=== PATIENT | male | born 1955 | race Caucasian/White ===

== ENCOUNTER 2020-06-10 11:30 | Day surgery (SDC) | payer BC, SELFPAY ==
--- NOTE | 2020-06-07 20:20 | PCM.HP.BLA ---
History and Physical Date of Admission: 06/10/20 HISTORY AND PHYSICAL ? Naun Herrera 1955 ? ? REFERRING PHYSICIAN: Miriam Black (Eladio), LA[employer]DR[employer]ORER.* ? CHIEF COMPLAINT: No chief complaint on file. ? HPI: The patient is a 64 year old male presents with complaint of RUQ abdominal pain and also presents with right inguinal hernia. He states that he noted RUQ abdominal pain about a week ago. He began noted right groin bulge that is tender to palpation, but denies pain in the area. Though not comfortable He states that he noted the hernia about 2 months ago. Growing larger, feels something loose in there. Feels like he needs to support the area He had left inguinal hernia repair many years ago. He states that he is taking 600 mg ibuprofen per day for chronic back pain. Notes constipation and hard stools, sometimes hard pellets, does admit to prolonged sitting, has a bowel movement every day No colon cancer known in family. He does have bright red blood per rectum, attributed to hemorrhoids. ?? PAST MEDICAL HISTORY ? Cerebral brain hemorrhage (HCC) ? ? Chronic low back pain ? ? Heart disease ? ? History of hepatitis A ? ? History of seizures as a child ? ? Juvenile epilepsy (HCC) ? ? PAST SURGICAL HISTORY ? HERNIA REPAIR HX ? 1974 ? age 15 ? ? Current Outpatient Medications ? iv contrast (will be provided with radiology test) CT LIVER W IVCON Inject, intravenously, once for 1 dose. No IV access, insert saline lock prior to the beginning of sedation, infusion, injection of imaging exam. Discontinue saline lock post exam. If Pt. has a central line or IVAD, may access for administration according to line specific nursing protocol. Once exam is complete flush line and de-access according to line specific nursing protocol in the CT contrast administration guidelines link. ? xnrdc-um-9-jkp-qal-xnmakaa-ast (KRILL OIL) 1,300-809-05-80 mg cap Take as directed ? ibuprofen (MOTRIN) 800 mg tablet Take 1 tablet by mouth every 8 hours as needed for Pain (with food.). ? GLUCOSAMINE HCL/CHONDR DEVNIE A NA (OSTEO BI-FLEX ORAL) Take by mouth. ? ? ALLERGIES: Tetracycline ? PERSONAL HISTORY: Social History ? Tobacco Use ? Smoking status: Never Smoker ? Smokeless tobacco: Never Used Substance Use Topics ? Alcohol use: Yes ? ? Alcohol/week: 4.0 standard drinks ? ? Types: 4 Shots of liquor per week ? ? Comment: history of alcoholism, quit drinking heavily 10 years ago ? Drug use: No ? FAMILY HISTORY ? Cancer Mother ? ? Lung ? Breast Cancer Mother ? ? Cancer Father ? ? Lung ? Alcohol abuse Father ? ? Heart Attack Father ? ? Breast Cancer Sister ? ? Emphysema Maternal Grandmother ? ? Heart Attack Maternal Grandfather ? ? from [place] at age 55 ? Alcohol abuse Paternal Grandmother ? ? Heart Attack Paternal Grandfather ? ? first [place] at age 45 ? Liver Cancer Paternal Grandfather ? ? No Known Problems Sister ? ? ? REVIEW OF SYSTEMS: General - denies fevers, denies anorexia, denies weight loss Cardiovascular - denies chest pain Pulmonary - denies shortness of breath, denies coughing up blood Gastrointestinal - see HPI, denies hematemesis Neurological - denies seizures, denies chronic numbness/weakness of extremities Genitourinary - denies burning with urination, denies blood in urine Hematological - denies spontaneous/prolonged bleeding Skin - denies nonhealing skin wounds Musculoskeletal - has back pain Endocrine - denies diabetes Psychological ? no major mood changes ? PHYSICAL EXAMINATION: General: The patient is 64 year old male, well nourished, well hydrated in no acute distress. The patient is oriented to time, place, and person. VITALS: Pulse 65, temperature 36.4 ?C (97.5 ?F), weight 98 kg (216 lb), SpO2 95 %. Body mass index is 31.9 kg/m?. Head ? Normocephalic. EOM intact with sclera clear and no icterus noted. Wearing glasses. Mouth with mucus membranes moist. Neck - supple with no jugular venous distention noted. Trachea is midline. Lungs ? clear to auscultation. Normal breath sounds. No rales/rhonchi/wheezing noted. No labored breathing noted, such as retractions. No cough heard. Heart ? normal S1 and S2 auscultated. No rubs/clicks/murmurs noted. Regular rate. Abdomen ? soft and benign. Normal bowel sounds. No abdominal bruits noted. Genitalia ? normal male phallus, testes in normal anatomical position and no masses noted, right inguinal hernia noted - reducible, no left inguinal hernias noted even with valsalva-like maneuvers Extremities ? no calf tenderness noted. No pitting edema noted. Skin ? normal skin integrity. Neurological ? gait normal, no focal deficits noted. Psych ? calm and appropriate ? ? IMPRESSION: right inguinal hernia ? PLAN: I have discussed the above with the patient. I have offered right inguinal hernia repair with mesh. I have explained the procedure to the patient. I have counseled the patient as to the risks of the procedure, including but not limited to: infection, bleeding, injury to any blood vessels/nerves, scar tissue, injury to any the spermatic cord and/or testicle, injury to bowel/bladder, chronic groin pain, recurrence of hernia, wound infections, complications of anesthesia, etc. ? the patient understands. ? The patient was offered a surgery/procedure . The provider and patient have discussed in detail the risk of exposure to and/or potential harm posed by the COVID-19 virus with having a surgery/procedure at this time versus the risk of? delaying the surgery/procedure. It is not possible to know either the risk of delaying the surgery or procedure or chance of getting an infection with perfect accuracy, but a joint decision was made between the patient and the provider ?to proceed at this time with the scheduled surgery/procedure. Procedure to be scheduled at [facility]. The patient wishes to proceed. ? I have answered all questions to the patient?s satisfaction and the patient has no further questions. ? . Diagnoses: (R19.09) Bulge in groin area (R16.0) Hypodense mass of liver (K62.5) Rectal bleeding Return to Clinic: The patient is instructed to follow-up with me after the procedure. ? ? ? Lidia Melendez MD
--- NOTE | 2020-06-09 09:27 | EKG12_ITS ---
Test Reason : PRE OP Blood Pressure : / mmHG Vent. Rate : 056 BPM Atrial Rate : 056 BPM P-R Int : 240 ms QRS Dur : 092 ms QT Int : 430 ms P-R-T Axes : 017 071 054 degrees QTc Int : 414 ms Sinus bradycardia with 1st degree A-V block Otherwise normal ECG Confirmed by VERITO HUNTLEY, KEMI ([id number]), assistant production editor CARISSA LARSON ([id number]) on 06/09/2020 1:29:26 PM Referred By: Lidia Melendez Confirmed By:KEMI SELLERS MD
[2020-06-09 10:13] LABS: Hematocrit 44.9 % (40-54); Hemoglobin 14.6 g/dL (13.0-16.5); Mean Corp Hgb Conc 32.5 g/dL (32-36); Mean Corpuscular Hgb 28.1 pg (27.0-32.0); Mean Corpuscular Volume 86.3 fL (80-94); Mean Platelet Vol. 9.4 fl (6.2-12.0); Platelet Count 255 K/mm3 (150-450); RBC Distribution Width CV 13.5 % (11.6-14.6); RBC Distribution Width SD 42.4 fl (35.1-43.9)
[2020-06-09 10:51] LABS: AST(SGOT) 23 U/L (15-37); Alanine Aminotransfer ALT/SGPT 41 U/L (16-61); Albumin, Serum 3.9 g/dL (3.2-5.0); Alkaline Phosphatase 50 U/L (45-117); Anion Gap 4 (5-15); BUN 18 mg/dL (7-18); BUN/Creat Ratio 14.5 RATIO (10-20); Bilirubin, Direct 0.05 mg/dL (0.00-0.30); Calcium,Total 9.2 mg/dL (8.5-10.1); Chloride 106 mmol/L (98-107); Creatinine, Serum 1.24 mg/dL (0.70-1.30); EST Glomerular Filtration Rate 62 mL/min (>60); Est Glom Filt Rate - Afr Amer 75 mL/min (>60); Globulin 3.8 g/dL (2.2-4.2); Glucose 99 mg/dL (74-106); Potassium 4.5 mmol/L (3.5-5.1); Protein, Total 7.7 g/dL (6.4-8.2); Sodium Level 139 mmol/L (136-145)
[2020-06-10] MEDS: Lactated Ringers 1,000 ML 75 ML IV (12:00)
[2020-06-10 12:11] VITALS: BP 132/82; PULSE 61; RESP 18; TEMP 36.6; O2SAT 99; BMI 32.3
--- NOTE | 2020-06-10 12:54 | PCM.DC.HER ---
Discharge Diet: No Restrictions - drink plenty of fluids Discharge Activity: Return to Normal Activity, May not drive while taking narcotic pain medications. Lifting Restrictions: no lifting greater than 40-50 pounds for one month Call your doctor if your incision/area has: Continuous Slow Oozing, Foul Smelling Discharge Additional Instructions: Recommended pain control regimen - May take 600 mg ibuprofen (Motrin) and then in 3-4 hours, may take 650 mg acetaminophen (Tylenol), then in 3-4 hours may take 600 mg ibuprofen, then in 3-4 hours may take 650 mg acetaminophen and so on for 2-3 days May take narcotic pain medication for pain that is not controlled by above and at night for comfort through the night Leave dressings in place May get dressings wet in shower - do not scrub in the area and pat dry Do not soak - no tub baths/swimming For hernia surgery - Swelling and bruising will occur in the area of the incision and also the scrotum Ice packs applied to the area will help, apply as long as tolerated and for your comfort Also can elevate scrotum by lying in a Lazy-boy chair position with legs up and place a folded towel across your upper thighs, place scrotum on top of towel and this will help drain the extra fluid from the scrotum back into your torso You may have bleeding at the dressing sites. If small amounts and not seeping through the dressing, do not worry - leave dressing in place. If starting to seep through the dressing, you may remove the dressing and take a clean wash clothe and apply direct pressure to the area for at least an hour and then apply a new clean bandaid at the site. If it still has not stopped bleeding, please call the office during the day or the [facility] handle machine operator at after hours and ask for Dr. Melendez Please call for a follow up appointment at the office to be seen in 1-2 weeks for a date and time available at your convenience. Call . Allergies/Adverse Reactions: Allergies Tetracyclines Adverse Reaction (Verified 06/10/20 12:11) Vomiting Medications to take at Discharge Glucos Sul 2Kcl/MSM/Chond/C/Mn [Glucosamine Chondroitin Cap] 1 ea PO DAILY 06/08/20 Ibuprofen [Ibu] 800 mg PO PRN PRN 06/08/20 Krill/Om-3/Dha/Epa/Phospho/Ast [Krill Oil 1,000 mg Softgel] 1 ea PO DAILY 06/08/20 Naproxen Sodium [Aleve] 220 mg PO DAILY PRN 06/08/20 Oxycodone [Oxyir] 5 mg PO Q8H PRN PRN 5 Days #15 tablet 06/10/20 The following prescriptions were given: Oxycodone [Oxyir] 5 mg PO Q8H PRN PRN 5 Days #15 tablet PRN Reason: Pain Score 6-10 Transmission Status: Received by [facility] Orders to be completed after discharge: COVID 19 AG RAPID (RN COLLECT) Time Frame: 06/09/20, Facility: [facility], Location: Laboratory Primary Care Physician: Todd Rivas MD [Primary Care Provider] - Test Results: Test results from this visit will be discussed in further detail at your follow-up appointment, if applicable. Please Follow Up With: Lidia Melendez MD - see above
[2020-06-10] MEDS: Cefazolin 2 GM in 0.9% Normal Saline 100 ML IV (13:08)
[2020-06-10] MEDS: Bupivacaine 0.25% 30 ML Vial (13:12)
[2020-06-10] MEDS: Lidocaine 1%/Epi 1:200 (30ml) 30 ML AMPUL (13:12)
--- NOTE | 2020-06-10 14:13 | OP.PCM_ITS ---
Report of Operation Date of Procedure: 06/10/20 Pre-Operative Diagnosis: right inguinal hernia Post-Operative Diagnosis: right inguinal hernia - direct and indirect Surgery/Procedure Performed:: right inguinal hernia repair with mesh Description of Surgical Findings:: indirect and direct inguinal hernia noted Type of Anesthesia:: General Anesthesiologist: Nik Kwon Specimen's removed: none Estimated Blood Loss (mL): < 10 ml Fluids Replaced: 700 ml RL Description of Procedure: After informed consent was obtained, patient was brought to the Operating Room. Appropriate time out protocol was followed. The patient was placed in the supine position. The patient was then placed under anesthesia by the anesthesia provider. The lower torso and the right groin area and genitalia were then prepped with a surgical skin preparation and appropriate sterile surgical drapes were placed. The anatomical landmarks were identified and after anesthetizing the skin and subcutaneous tissues with 0.25% Marcaine with epinephrine, a transverse skin incision was made above the level of the internal inguinal ring. The subcutaneous tissues were then sharply dissected down to the external oblique fascia and any hemorrhage was adequately controlled with electrocoagulation. The external oblique was then divided obliquely along the fibers and a muscle-splitting incision was then made to divide the internal oblique musculature and fascia. The transversalis fascia was then identified and was then incised parallel to the inferior hypogastric vessels. The preperitoneal space was then entered. Blunt dissection was then done to identify out Samuel's ligament, the pubic tubercle and a large area surrounding these landmarks for placement of the mesh. The iliac vessels were identified. Within Hasselbach's triangle, there was a fascial defect noted. The hernia was reduced back into the preperitoneal cavity. The spermatic cord was identified and isolated to prevent its injury. There was an internal hernia sac identified. This peritoneal sac was then from the spermatic cord by blunt di ssection. Blunt dissection continued to separate the spermatic cord from the sac and this was done proximally until the bifurcation of the gonadal vessels and vans deferens was noted. The peritoneal sac was opened and there was no incarceration of any intraabdominal contents. There is no evidence of any other opening in the peritoneum. The peritoneal opening that was created was then closed using a running 3-0 Vicryl suture. A large right sided Bard 3D mesh was then positioned into the preperitoneal space. A 5 mm tacker was used to secure the medial aspect of the mesh was tacked to the pubic tubercle. It was placed such that the medial aspect would be overlapping medial to the pubic tubercle and the inferior edge would be placed inferior to Samuel's ligament. The remainder of the mesh was flattened out against the anterior abdominal wall. The mesh also covered the wound opening in the preperitoneal space. The internal oblique and transversalis fascia was then reapproximated using interrupted 0 prolene suture. One of the sutures was used to lock the mesh into position and secure it to the anterior abdominal wall. Hemostasis was carefully controlled with electrocoagulation. The external oblique fascia was then reapproximated using a running 0 Vicryl suture. This was carefully done to avoid any entrapment of blood vessels/nerves. Tracy's fascia was closed using Vicryl suture in an interrupted simple fashion. The skin incision was closed with 4-0 Monocryl in a running subcuticular fashion. Cavilon and Steri-Strips were used to reinforce the skin closure and appropriate sterile dressing was applied. Sponge, needle, and instrument count were verified and correct at the time of skin closure. The patient was brought to the Recovery Room in stable condition. Grafts/Implants Used: Bard 3D mesh LOT [id number], Covidien 5 mm tacker Lot [id number] - Complications none noted - Admit VTE Documentation VTE Present on Admission: Yes VTE Mechan Device Prophylaxis: SCD's
[2020-06-10 14:32] VITALS: BP 119/80; BP 132/82; PULSE 60; RESP 18; TEMP 36.4; O2SAT 96
[2020-06-10 14:38] VITALS: BP 123/79; BP 132/82; PULSE 56; RESP 18; O2SAT 98
[2020-06-10 14:45] VITALS: BP 117/83; BP 132/82; PULSE 58; RESP 18; O2SAT 97
[2020-06-10 14:54] VITALS: BP 114/80; BP 132/82; PULSE 60; RESP 18; TEMP 36.3; O2SAT 96
[2020-06-10] MEDS: oxyCODONE 5 MG Tablet PO (15:18)
[2020-06-10 16:25] VITALS: BP 120/62; BP 132/82; PULSE 58; RESP 18; TEMP 36.8; O2SAT 95
== END 2020-06-10 16:39 | disposition home or self-care (01) ==
LOC: SDC 11:31 → AC 11:31
PROVIDERS: Anesthesiology; PCP Internal Medicine; Referring Provider Surgery; Visit Provider Surgery
PROC: (CPT 49505; principal; 2020-06-10 12:45)
DX: K40.90 Unilateral inguinal hernia, without obstruction or gangrene, not specified as recurrent (principal); Z20.828 Contact with and (suspected) exposure to other viral communicable diseases; Z87.19 Personal history of other diseases of the digestive system
CPT/HCPCS: 00840; 49505; 36415; 80048; 80076; 85027; 93005; J7120; C1781; J2405

== ENCOUNTER 2020-07-27 09:52 | Day surgery (SDC) | payer BC, SELFPAY ==
--- NOTE | 2020-07-25 14:03 | HP.PCM_ITS ---
History and Physical Date of Admission: 07/27/20 HISTORY AND PHYSICAL ? Naun Herrera 1955 ? ? REFERRING PHYSICIAN: Lidia Melendez MD ? CHIEF COMPLAINT: Established Patient (F/u hernia repair) ? HPI: The patient is a 65 year old male is s/p right inguinal hernia repair with mesh done on 06/10/20 at [facility]. He was noted to have a small indirect inguinal hernia but large direct inguinal hernia. He notes a persistent mass in the right groin area. At first, I thought that this may be a residual seroma, however, it has not resolved and is becoming painful for the patient. He also notes pulling sensation discomfort on the right side of his abdomen. ? ? PAST MEDICAL HISTORY Diagnosis Date ? Cerebral brain hemorrhage (HCC) ? ? Chronic low back pain ? ? Coronary artery disease ? ? Heart disease ? ? History of hepatitis A ? ? History of seizures as a child ? ? Inguinal hernia 05/2020 ? Juvenile epilepsy (HCC) ? ? PAST SURGICAL HISTORY Procedure Laterality Date ? BRAIN SURGERY HX ? ? ? COLONOSCOPY SCRN NOT HIGH RISK ? 05/14/2020 ? HERNIA REPAIR HX ? 1975 ? age 15 ? REPAIR INGUINAL HERNIA Right 06/11/2020 ? with mesh ? ? Current Outpatient Medications Medication Sig ? snwpt-oh-9-mhd-kbd-quhumgd-ast (KRILL OIL) 1,468-097-95-80 mg cap Take as directed ? ibuprofen (MOTRIN) 800 mg tablet Take 1 tablet by mouth every 8 hours as needed for Pain (with food.). ? GLUCOSAMINE HCL/CHONDR DEVINE A NA (OSTEO BI-FLEX ORAL) Take by mouth. ? ? ALLERGIES: Tetracycline ? PERSONAL HISTORY: Social History ? Tobacco Use ? Smoking status: Never Smoker ? Smokeless tobacco: Never Used Substance Use Topics ? Alcohol use: Yes ? ? Alcohol/week: 4.0 standard drinks ? ? Types: 4 Shots of liquor per week ? ? Comment: history of alcoholism, quit drinking heavily 10 years ago ? Drug use: No ? FAMILY HISTORY Problem Relation Age of Onset ? Cancer Mother ? ? Lung ? Breast Cancer Mother ? ? Cancer Father ? ? Lung ? Alcohol abuse Father ? ? Heart Attack Father ? ? Breast Cancer Sister ? ? Emphysema Maternal Grandmother ? ? Heart Attack Maternal Grandfather ? ? from [place] at age 55 ? Alcohol abuse Paternal Grandmother ? ? Heart Attack Paternal Grandfather ? ? first [place] at age 45 ? Liver Cancer Paternal Grandfather ? ? No Known Problems Sister ? ? ? REVIEW OF SYSTEMS: General - denies fevers, denies anorexia, denies weight loss Cardiovascular - denies chest pain Pulmonary - denies shortness of breath, denies coughing up blood Gastrointestinal -?see HPI,?denies hematemesis Neurological - denies seizures, denies chronic numbness/weakness of extremities Genitourinary - denies burning with urination, denies blood in urine Hematological - denies spontaneous/prolonged bleeding Skin - denies nonhealing skin wounds Musculoskeletal -?has back pain Endocrine - denies diabetes Psychological ??no major mood changes ? ? PHYSICAL EXAMINATION: General: ?The patient is 64 year old male, well nourished, well hydrated in no acute distress. ?The patient is oriented to time, place, and person. VITALS:?Pulse 65, temperature 98.5 ?F, weight 216 lb Head ??Normocephalic. EOM intact with sclera clear and no icterus noted. ?W earing glasses.??Mouth with mucus membranes moist. Neck - supple with no jugular venous distention noted. Trachea is midline. Lungs ??clear to auscultation. Normal breath sounds. No rales/rhonchi/wheezing noted. No labored breathing noted, such as retractions. No cough heard. Heart ??normal S1 and S2 auscultated. No rubs/clicks/murmurs noted. Regular rate. Abdomen ??soft and benign. Normal bowel sounds. No abdominal bruits noted. Genitalia ??normal male phallus, testes in normal anatomical position and no masses noted, right inguinal bulge noted - tender Extremities ??no calf tenderness noted. No pitting edema noted. Skin ??normal skin integrity. Neurological ??gait normal, no focal deficits noted. Psych ??calm and appropriate ? ? IMPRESSION: possible recurrent right inguinal hernia ? PLAN: I have discussed the above with the patient. I have offered right inguinal exploration - right inguinal hernia repair with mesh I have explained the procedure to the patient. I have counseled the patient as to the risks of the procedure, including but not limited to: infection, bleeding, injury to any blood vessels/nerves, scar tissue, injury to any intrabdominal organs, injury to bowel/bladder, injury to the spermatic cord and/or testicle, chronic groin pain, recurrence of hernia, wound infections, complications of anesthesia, etc. ? the patient understands. The patient was offered a surgery/procedure. The provider and patient have discussed in detail the risk of exposure to and/or potential harm posed by the COVID-19 virus with having a surgery/procedure at this time versus the risk of delaying the surgery/procedure. It is not possible to know either the risk of delaying the surgery or procedure or chance of getting an infection with perfect accuracy, but a joint decision was made between the patient and the provider to proceed at this time with the scheduled surgery/procedure. The patient wishes to proceed. ? I have answered all questions to the patient?s satisfaction and the patient has no further questions. . Diagnoses: (K40.91) Recurrent right inguinal hernia (primary encounter diagnosis) ? Lidia Melendez MD
[2020-07-27] VITALS (9 sets, daily range): BP systolic 106–134; BP diastolic 67–85; PULSE 56–65; RESP 16; TEMP 36.1–36.6; O2SAT 93–99; BMI 32.0
[2020-07-27] MEDS: Lactated Ringers 1,000 ML 100 ML IV ×2 (10:34→13:00)
--- NOTE | 2020-07-27 11:23 | DCINST_ITS ---
Discharge Diet: No Restrictions - drink plenty of fluids Discharge Activity: Return to Normal Activity, May not drive while taking narcot ic pain medications. Lifting Restrictions: no lifting greater than 20 pounds Call your doctor if your incision/area has: Continuous Slow Oozing, Foul Smelling Discharge Call your doctor if you observe: Fever of 101 or Higher Additional Instructions: Recommended pain control regimen - May take 600 mg ibuprofen (Motrin) and then in 3-4 hours, may take 650 mg acetaminophen (Tylenol), then in 3-4 hours may take 600 mg ibuprofen, then in 3- 4 hours may take 650 mg acetaminophen and so on for 2-3 days May take narcotic pain medication for pain that is not controlled by above and at night for comfort through the night Leave dressings in place May get dressings wet in shower - do not scrub in the area and pat dry Do not soak - no tub baths/swimming For hernia surgery - Swelling and bruising will occur in the area of the incision and also the scrotum Ice packs applied to the area will help, apply as long as tolerated and for your comfort Also can elevate scrotum by lying in a Lazy-boy chair position with legs up and place a folded towel across your upper thighs, place scrotum on top of towel and this will help drain the extra fluid from the scrotum back into your torso Please call for a follow up appointment at the office to be seen in 1-2 weeks for a date and time available at your convenience. Call . Allergies/Adverse Reactions: Allergies Tetracyclines Adverse Reaction (Verified 07/21/20 10:00) Vomiting Medications to take at Discharge Glucos Sul 2Kcl/MSM/Chond/C/Mn [Glucosamine Chondroitin Cap] 2 ea PO DAILY 06/08/20 Ibuprofen [Ibu] 800 mg PO PRN PRN 06/08/20 Krill/Om-3/Dha/Epa/Phospho/Ast [Krill Oil 1,000 mg Softgel] 3 ea PO DAILY 06/08/20 Primary Care Physician: Todd Rivas MD [Primary Care Provider] - Test Results: Test results from this visit will be discussed in further detail at your follow- up appointment, if applicable. Please Follow Up With: Lidia Melendez MD - call When: to be seen in 1-2 weeks, please call for date and time, thank you
[2020-07-27] MEDS: Cefazolin 2 GM in 0.9% Normal Saline 100 ML IV (11:26)
[2020-07-27] MEDS: Bupivacaine 0.25% 30 ML Vial (12:49)
--- NOTE | 2020-07-27 12:50 | PCM.OPRPT ---
Report of Operation Date of Procedure: 07/27/20 Pre-Operative Diagnosis: recurrent right inguinal hernia Post-Operative Diagnosis: same Surgery/Procedure Performed:: repair of recurrent right inguinal hernia Description of Surgical Findings:: fatty tissues in the groin area business account specialist: Zoraida Hall Type of Anesthesia:: General Anesthesiologist: Sanjay Zaragoza Specimen's removed: none Drains: none Estimated Blood Loss (mL): 20 ml Fluids Replaced: 1000 ml RL Description of Procedure: After informed consent was obtained, the patient was brought to the Operating Room and placed in the supine position. Appropriate time out protocol was followed. The patient was then placed under anesthesia. The right groin area and lower torso and genitalia were then prepped with a sterile surgical skin preparation. Sterile surgical drapes were placed. This skin and subcutaneous tissues were then widely infiltrated with the local anesthetic. A skin incision was then made with a 15 blade scalpel over the hernia site in a transverse oblique fashion and carried down to the subcutaneous tissues using sharp dissection. Any hemorrhage was adequately controlled with electrocautery. Division of the tissues along the incision line continued down to the external oblique fascia was identified. It was then divided along its fibers using sharp dissection carefully avoiding any injury to any blood vessels/nerves. The spermatic cord was then isolated using blunt dissection and tagged with a Talia drain. There was fatty tissues in the groin area. No actual hernia defect was identified, but the floor of the inguinal canal was weak. The spermatic cord was carefully examined, there was no indirect inguinal hernia sac identified. The floor of the inguinal canal was opened and there was no femoral hernia noted. A Perfix plug/patch was brought up, large sized. The plug was placed in the preperitoneal space to reinforce the floor of the inguinal canal. It's edges were sutured to the following - pubic tubercle, Samuel's ligament and the confluence of the internal oblique and transversalis fascia with prolene suture. The patch portion of the mesh was then sutured to the floor of the inguinal canal. It was sutured to the abovementioned locations. The lateral legs of the mesh were then wrapped around the spermatic cord and sutured to itself. The spermatic cord was then replaced in its proper anatomical position. The external oblique fascia was then reapproximated over the spermatic cord to close the roof of the inguinal canal with a running 3-0 vicryl suture. Tracy's fascia was reapproximated with interrupted 3-0 vicryl sutures. The skin incision was reapproximated with a running 4-0 Monocryl suture. Cavilon and steristrips were placed to reinforce the skin closure and a sterile opsite dressing was applied. Sponge, needle, and instrument count were verified and correct at the time of skin closure. The patient was brought to the Recovery Room in stable condition. - Complications none noted - Admit VTE Documentation VTE Present on Admission: Yes VTE Mechan Device Prophylaxis: SCD's
== END 2020-07-27 16:32 | disposition home or self-care (01) ==
LOC: SDC 09:54 → AC 09:54
PROVIDERS: PCP Internal Medicine; Referring Provider Surgery; Visit Provider Surgery
PROC: (CPT 49520; principal; 2020-07-27 11:15)
DX: K40.91 Unilateral inguinal hernia, without obstruction or gangrene, recurrent (principal); Z20.828 Contact with and (suspected) exposure to other viral communicable diseases; M54.5 Low back pain; G89.29 Other chronic pain; Z87.19 Personal history of other diseases of the digestive system
CPT/HCPCS: 00830; 49520; 87426; C9803; J7120; C1781; J2405

== ENCOUNTER 2022-06-19 07:25 | Inpatient (IN) | payer MEDICARE, OTHER, SELFPAY ==
[2022-06-19] VITALS (13 sets, daily range): BP systolic 104–148; BP diastolic 69–88; PULSE 56–70; RESP 16–20; TEMP 36.6–36.9; O2SAT 96–100; BMI 31.0; BMI 30.9
--- NOTE | 2022-06-19 07:34 | EKG12_ITS ---
Test Reason : CP Blood Pressure : / mmHG Vent. Rate : 061 BPM Atrial Rate : 061 BPM P-R Int : 366 ms QRS Dur : 098 ms QT Int : 420 ms P-R-T Axes : 027 026 038 degrees QTc Int : 422 ms Sinus rhythm with 1st degree A-V block Possible Left atrial enlargement Inferior infarct , age undetermined Abnormal ECG Confirmed by VERITO HUNTLEY, KEMI ([id number]), medical editor RUTH BRADLEY ([id number]) on 06/20/2022 9:17:39 AM Referred By: CHARLOTTE Confirmed By:KEMI SELLERS MD
--- NOTE | 2022-06-19 07:34 | RAD_ITS ---
STUDY: X-RAY CHEST REASON FOR EXAM: Male, 67 years old. chest pain heartburn for one week TECHNIQUE: Single AP portable view of the chest. COMPARISON: None. FINDINGS: The lungs are clear and expanded. There is no demonstrated pleural abnormality. Normal size heart. Normal mediastinum and demetri. Normal visualized pulmonary arteries. There is atherosclerotic tortuosity of the aortic arch and descending thoracic aorta. There are diffuse degenerative changes of the visualized thoracic spine. Normal visualized ribs, clavicles, and shoulders. There is no demonstrated abnormality of the visualized soft tissue structures of the upper abdomen. RAD/Chest 1 View (Portable) IMPRESSION: Degenerative changes, as described above. No demonstrated acute cardiopulmonary process. Electronically Signed: John Claire MD at 8:15 EST ,
[2022-06-19 07:52] LABS: Absolute Lymphocyte Count 1.99 X10^3/uL (0.83-4.51); Absolute Neutrophil Count 4.7 X10^3/uL (2.0-7.7); Basophil# 0.05 X10^3/uL; Basophil% 0.6 % (0-1); Eosinophil# 0.37 X10^3/uL; Eosinophils% 4.6 % (0-5); Hematocrit 48.2 % (40-54); Hemoglobin 15.3 g/dL (13.0-16.5); Lymphocyte # 1.99 X10^3/ul (0.83-4.51); Mean Corp Hgb Conc 31.7 g/dL (32-36); Mean Corpuscular Hgb 28.4 pg (27.0-32.0); Mean Corpuscular Volume 89.4 fL (80-94); Monocyte# 0.85 X10^3/uL; Monocyte% 10.7 % (0-10); NRBC Flagged by Analyzer 0 % (0-5); Neutrophil # 4.66 X10^3/uL (2.7-7.7); Neutrophil % 58.6 % (47-70); Platelet Count 232 K/mm3 (150-450); RBC Distribution Width CV 13.7 % (11.6-14.6); RBC Distribution Width SD 44.7 fl (35.1-43.9); Red Blood Count 5.39 M/mm3 (4.6-6.2)
[2022-06-19 08:10] LABS: AST(SGOT) 46 U/L (15-37); Alanine Aminotransfer ALT/SGPT 47 U/L (16-61); Albumin, Serum 4.1 g/dL (3.2-5.0); Alkaline Phosphatase 48 U/L (45-117); Anion Gap 7 (5-15); BUN 24 mg/dL (7-18); BUN/Creat Ratio 18.9 RATIO (10-20); Bilirubin, Direct 0.15 mg/dL (0.00-0.30); Calcium,Total 9.6 mg/dL (8.5-10.1); Chloride 104 mmol/L (98-107); Creatinine, Serum 1.27 mg/dL (0.70-1.30); EST Glomerular Filtration Rate 60 mL/min (>60); Est Glom Filt Rate - Afr Amer 73 mL/min (>60); Estimated Creatinine Clearance 56.44 ml/min; Globulin 3.5 g/dL (2.2-4.2); Glucose 121 mg/dL (74-106); Lipase 160 U/L (73-393); Potassium 4.5 mmol/L (3.5-5.1); Protein, Total 7.6 g/dL (6.4-8.2); Sodium Level 140 mmol/L (136-145); Troponin-I HS (w/2H Reflex) 6049 pg/mL (3.0-78.0)
[2022-06-19] MEDS: Nitroglycerin SL (ED/IMG/CATH) 0.4 MG TABLET SL (08:21)
[2022-06-19] MEDS: Aspirin 81 MG TAB.CHEW 243 MG PO (08:25)
--- NOTE | 2022-06-19 09:04 | ED.VIS.CHEST ---
HPI History of Present Illness Chief Complaint: Chest Pain Narrative Narrative: 67-year-old male presenting with chest pain. He describes his symptoms as pressure and sometimes is burning. He does have dyspepsia. He states this has been ongoing for about a week. Episodes last a couple of hours at a time. He notes that he did eat some spicy [place] food last night but also notes that it does not matter what he eats he gets dyspepsia with everything. This is a new issue. He does feel little bit lightheaded. States he had chest pain about 4 AM which is now improving to about a 3/10. He states that he had some cardiac testing done in the early . He was told by 1 charge master coordinator he had heart disease and he was told by another one he did not. He has not had an [place]. He states his only medical problem is hyperlipidemia. PFSH PFS Medical History Back pain HLD (hyperlipidemia) Home Medications glucosamine sulf dipot chlr,msm,chond 550 mg-C 30 mg-enmanuel 1 mg capsule 2 ea PO DAILY 06/08/20 [History Last Taken Unknown] ibuprofen 800 mg tablet 800 mg PO PRN PRN Pain 1-10 Or Fever 06/08/20 [History Last Taken Unknown] krill 1,000 mg-omega-3 170 mg-dha 50 mg-epa 80 [id number]-[id number] capsule 3 ea PO DAILY 06/08/20 [History Last Taken Unknown] acetaminophen 650 mg tablet,extended release 1,300 mg PO DAILY 06/19/22 [History Last Taken Unknown] glucosamine-chondroitin 250 mg-200 mg tablet (Osteo Bi-Flex) 2 tab PO BID 06/19/22 [History Last Taken Unknown] meloxicam 15 mg tablet 15 mg PO DAILY 06/19/22 [History Last Taken Unknown] simvastatin 10 mg tablet 10 mg PO DAILY 06/19/22 [History Last Taken Unknown] Allergy/AdvReac Type Severity Reaction Status Date / Time Tetracyclines AdvReac Vomiting Verified 06/19/22 07:25 Surgical History History of hernia repair Social History Smoking Status: Never smoker ROS ROS ED Constitutional Constitutional ED: Denies chills, fever(s) or sweats Eyes Eyes: Denies blurry vision or change in vision ENT ENT ED: Denies ear pain or sore throat Cardiovascular Cardiovascular: Reports chest pain; Denies palpitations or racing heartbeat Respiratory/Chest Respiratory/Chest: Denies cough, dyspnea or sputum Gastrointestinal Gastrointestinal: Reports other Details: Dyspepsia/belching ; Denies abdominal pain, constipation, diarrhea, nausea or vomiting Genitourinary Genitourinary ED: Denies dysuria, hematuria or urinary frequency Musculoskeletal Musculoskeletal: Denies arthralgias, myalgias or neck pain Integumentary Denies abscess, Abrasions or rash Neurologic Neurologic: Denies headache(s), paresthesias or weakness Psychiatric Psychiatric: Denies anxiety, depression, suicidal ideation or suicidal thoughts Endocrine Endocrinology: Denies polydipsia or polyuria EXAM Physical Exam Const Vital Signs: 06/19/22 07:26 06/19/22 07:32 06/19/22 07:36 Temperature 97.8 F Temperature Source Temporal Pulse Rate 56 L Respiratory Rate 18 Respiratory Effort Normal Non-Labored Blood Pressure 139/73 H Blood Pressure Mean 95 Pulse Ox 100 100 Oxygen Delivery Method Room Air Room Air 06/19/22 08:21 06/19/22 08:31 Temperature Temperature Source Pulse Rate 58 L 70 Respiratory Rate 18 Respiratory Effort Blood Pressure 148/79 H 118/78 Blood Pressure Mean 91 Pulse Ox 96 Oxygen Delivery Method Room Air General Appearance ED: Negative for pallor HEENT Reports normocephalic, head/scalp atraumatic and moist mucous membranes Eyes PERRL and EOMs intact bilaterally Neck no lymphadenopathy and supple Chest Wall inspection of chest normal and palpation of chest normal Resp normal respiratory effort and clear to auscultation bilaterally Auscultation: Negative for rales, rhonchi or wheezes Cardio regular rate and regular rhythm GI normal to inspection, nondistended, normoactive bowel sounds and non-distended Auscultation: normoactive bowel sounds Palpation: soft Narrative: Deferred Extremity normal to inspection General Extremety ED: Negative for edema or tenderness General Extremity: Negative for edema Neuro oriented x3 and CN's II-XII intact bilaterally Sensorium / Orientation: alert Motor Exam: strength 5/5 throughout Psych mental status grossly normal Attitude: No agitated Skin no rashes or lesions noted and no wounds General Skin Exam: Negative for jaundice or pallor Heart Score History: Moderately Suspicious ECG: Normal Age: >/= 65 years Risk Factors: 1 or 2 Risk Factors Troponin: >/=3 x Normal Limit Score: 6 MDM MDM MDM Narrative Medical decision making narrative: Patient presenting with chest pain which is now down to a 3/10. He was given a nitroglycerin and is now pain-free. EKG was obtained and on my interpretation shows a sinus rhythm with a ventricular rate of 61 bpm with first-degree AV block. Nonspecific ST-T wave changes. No STEMI. Patient was given 243 mg of aspirin as he had already taken 81 mg of aspirin earlier. HEART score of 4. I do have high suspicion that the patient is already infarcted at some point this week. His vital signs are stable. CBC to determine white blood cell count, hemoglobin, platelets, differential. CMP for liver function, renal function, electrolytes. High-sensitivity troponin due to chest pain. Lipase was ordered due to dyspepsia and retrosternal pain. differential includes but is not limited to ACS, PE, pneumonia,muscle strain, costochondritis GERD, gastritis, peptic ulcer disease, pancreatitis. Since liver enzymes are normal as well as lipase I do not suspect a GI source. Patient is PERC negative so PE is low on the differential. Chest x-ray my interpretation shows no acute cardiopulmonary process. Radiologist services and agrees. High-sensitivity troponin came back at 6049. Discussed with Dr[address] Justice. He states that he will take him to the Prevocational/Rehabilitation Counselor in about 1 hour. He states aspirin therapy was enough at this point. Discussed with hospitalist for admission. Impression: 1. Chest pain 2. NSTEMI Lab Data Attestation: I reviewed the patient's lab results. Labs: Laboratory Results - last 24 hr 06/19/22 06/19/22 07:40 07:40 WBC 8.0 RBC 5.39 Hgb 15.3 Hct 48.2 MCV 89.4 MCH 28.4 MCHC 31.7 L RDW Std Deviation 44.7 H RDW Coeff of Maggi 13.7 Plt Count 232 MPV 10.0 Immature Gran % (Auto) 0.500 Neut % (Auto) 58.6 Lymph % (Auto) 25.0 [place] % (Auto) 10.7 H Eos % (Auto) 4.6 Baso % (Auto) 0.6 Absolute Neuts (auto) 4.7 Absolute Lymphs (auto) 1.99 Nucleated RBC % 0 Sodium 140 Potassium 4.5 Chloride 104 Carbon Dioxide 29.0 Anion Gap 7 BUN 24 H Creatinine 1.27 Estim Creat Clear Calc 56.44 Est GFR (MDRD) Af Amer 73 Est GFR (MDRD) Non-Af 60 BUN/Creatinine Ratio 18.9 Glucose 121 H Calcium 9.6 Total Bilirubin 0.50 Direct Bilirubin 0.15 AST 46 H ALT 47 Alkaline Phosphatase 48 Troponin I High Sens 6049 H* Total Protein 7.6 Albumin 4.1 Globulin 3.5 Lipase 160 Radiography Diagnostic Testing: Clinical Impression(s) from Imaging Studies Chest X-Ray 06/19/22 07:34 IMPRESSION: Degenerative changes, as described above. No demonstrated acute cardiopulmonary process. Electronically Signed: John Claire MD at 8:15 EST Reading Location ID and State: [facility] / [place] , Service support , Discharge Plan Triage Chief Complaint: Chest Pain ED Provider: Brannon Desouza Dx/Rx/DC Orders Prescriptions: No Action ibuprofen 800 MG tablet 800 mg PO PRN PRN (Reason: Pain 1-10 Or Fever) [id number] 1 EACH capsule 3 ea PO DAILY glucos sul [id number] 1 EACH capsule 2 ea PO DAILY meloxicam 15 mg tablet 15 mg PO DAILY Label Comments: Take 1 tablet BY MOUTH ONCE DAILY WITH FOOD simvastatin 10 mg tablet 10 mg PO DAILY acetaminophen 650 mg Tablet Extended Release 1,300 mg PO DAILY glucosamine-chondroitin [Osteo Bi-Flex] 250-200 mg Tablet 2 tab PO BID Rx Instructions: give after food/meal Primary Care Provider: Todd Rivas Referrals: Todd Rivas MD [Primary Care Provider] -
--- NOTE | 2022-06-19 09:23 | PCM.HP.STD ---
HPI - General General Date of Admission: 06/19/22 Date of Service: 06/19/22 Chief Complaint: Chest pain HPI Narrative CARINA GARDUNO, is a 67 M with history of recent concussion October hernia surgery who presented to [facility] 06/19/2022 with 1 week of intermittent chest pain. The pain is burning and substernal/slightly radiates to the left and often is worsened with eating and will cause some tightness, had an episode of dizziness yesterday. He usually walks 8 miles but has been more fatigued over the past several months and is now down to 4 miles, did go swimming on Sunday which did not worsen his pain but his pain did return and it woke him up this morning at 4 AM and was fairly severe prompting him to come to the hospital. In the ED he had a troponin of 6049 and given his pain cardiology was contacted and plan was for left heart cath this morning. Hospitalist contacted for admission. Patient was given nitro and loaded with aspirin in ED and reports that his pain is present but is certainly better and is still somewhat substernal and burning in nature. 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 Yesterday felt that maybe he had been slightly feverish but was not able to quantify that further, has had some belching and heartburn-like symptoms. Also endorsed leg swelling off and on for several years. Denies smoking, reports that he has a history where he will binge drink but has not drank in 3 weeks and does not have concern for withdrawing. Denied other complaints at this time. [facility] Medical History Back pain HLD (hyperlipidemia) Home Medications glucosamine sulf dipot chlr,msm,chond 550 mg-C 30 mg-enmanuel 1 mg capsule 2 ea PO DAILY 06/08/20 [History Last Taken Unknown] ibuprofen 800 mg tablet 800 mg PO PRN PRN Pain 1-10 Or Fever 06/08/20 [History Last Taken Unknown] krill 1,000 mg-omega-3 170 mg-dha 50 mg-epa 80 [id number] capsule 3 ea PO DAILY 06/08/20 [History Last Taken Unknown] acetaminophen 650 mg tablet,extended release 1,300 mg PO DAILY 06/19/22 [History Last Taken Unknown] glucosamine-chondroitin 250 mg-200 mg tablet (Osteo Bi-Flex) 2 tab PO BID 06/19/22 [History Last Taken Unknown] meloxicam 15 mg tablet 15 mg PO DAILY 06/19/22 [History Last Taken Unknown] simvastatin 10 mg tablet 10 mg PO DAILY 06/19/22 [History Last Taken Unknown] Allergy/AdvReac Type Severity Reaction Status Date / Time Tetracyclines AdvReac Vomiting Verified 06/19/22 07:25 Surgical History History of hernia repair Social History Smoking Status: Never smoker ROS ROS Narrative General: Had 1 episode where he felt possibly feverish yesterday HENT: Denies headache, denies stuffy nose, denies sore throat EYES: Denies changes in vision Resp: Denies cough, has some chronic shortness of breath with significant exertion Cardiac: Substernal chest burning GI: Denies abdominal pain at this present time but has had occasional right lower quadrant discomfort, denies changes in bowel, denies nausea, denies vomiting : Denies changes in urination Extremity: Occasional lower extremity swelling MSK: Denies weakness Neuro: Has chronic tingling in fingertips bilaterally, denies tingling Heme: Denies any bleeding or bruising Skin: Denies rashes Psychiatric: No complaints voiced Vital Signs Vital Signs Vital Signs: 06/19/22 07:26 06/19/22 07:32 06/19/22 07:36 Temperature 97.8 F Temperature Source Temporal Pulse Rate 56 L Respiratory Rate 18 Respiratory Effort Normal Non-Labored Blood Pressure 139/73 H Blood Pressure Mean 95 Pulse Ox 100 100 Oxygen Delivery Method Room Air Room Air 06/19/22 08:21 06/19/22 08:31 Temperature Temperature Source Pulse Rate 58 L 70 Respiratory Rate 18 Respiratory Effort Blood Pressure 148/79 H 118/78 Blood Pressure Mean 91 Pulse Ox 96 Oxygen Delivery Method Room Air Weight Weight: 95.254 kg Body Mass Index (BMI) 31.0 Physical Exam Narrative General: Alert, oriented, no apparent distress HEENT: Atraumatic, normocephalic Eyes: Anicteric, normal conjunctiva, extraocular movements grossly intact Neck: Supple Respiratory: Clear to auscultation bilaterally, normal respiratory effort Cardiovascular: Regular rate and rhythm GI: Soft, nontender, nondistended Extremities: No edema Musculoskeletal: Moving all extremities Neuro: No overt focal neurological deficits Skin: No rashes appreciated Psych: Cooperative Results Lab / Micro Data Result Diagrams: 06/19/22 07:40 06/19/22 07:40 Labs: Laboratory Results - last 24 hr 06/19/22 07:40: WBC 8.0, RBC 5.39, Hgb 15.3, Hct 48.2, MCV 89.4, MCH 28.4, MCHC 31.7 L, RDW Std Deviation 44.7 H, RDW Coeff of Maggi 13.7, Plt Count 232, MPV 10.0, Immature Gran % (Auto) 0.500, Neut % (Auto) 58.6, Lymph % (Auto) 25.0, [place] % (Auto) 10.7 H, Eos % (Auto) 4.6, Baso % (Auto) 0.6, Absolute Neuts (auto) 4.7, Absolute Lymphs (auto) 1.99, Nucleated RBC % 0 06/19/22 07:40: Sodium 140, Potassium 4.5, Chloride 104, Carbon Dioxide 29.0, Anion Gap 7, BUN 24 H, Creatinine 1.27, Estim Creat Clear Calc 56.44, Est GFR (MDRD) Af Amer 73, Est GFR (MDRD) Non-Af 60, BUN/Creatinine Ratio 18.9, Glucose 121 H, Calcium 9.6, Total Bilirubin 0.50, Direct Bilirubin 0.15, AST 46 H, ALT 47, Alkaline Phosphatase 48, Troponin I High Sens 6049 H*, Total Protein 7.6, Albumin 4.1, Globulin 3.5, Lipase 160 Radiology Impression Chest X-Ray 06/19/22 07:34 IMPRESSION: Degenerative changes, as described above. No demonstrated acute cardiopulmonary process. Electronically Signed: John Claire MD at 8:15 EST Reading Location ID and State: [address] [place] [address] , Service support , Assessment & Plan Assessment/Plan (1) Non-STEMI (non-ST elevated myocardial infarction): PLAN: Plan #NSTEMI -Admit to telemetry -Concern for type I -Loaded with aspirin and given nitro -Chest pain improving but is still present -Troponin greater than 6000, EKG with first-degree block -For cardiac cath this a.m., cardiology -Echo -Daily weights and I's and O's -N.p.o. for cardiac cath -Aspirin, statin, lipid panel #DVT ppx: SCDs Cielo Rich MD Time spent in the patient's overall evaluation,decision-making process, review of diagnostic data, adjustment of management, discussion with other providers, nursing nursing and ancillary staff involved in patient's care documentation, 60 Minutes Charges/Coding Visit Charges Inpatient E&M: 61144 Init Hosp L2
--- NOTE | 2022-06-19 09:31 | PCM.CONS.C ---
Assessment & Plan Assessment/Plan (1) Non-STEMI (non-ST elevated myocardial infarction): PLAN: He presents with a non-ST elevation myocardial infarction. My recommendation will be to proceed with a left heart catheterization. He will be given an aspirin Started on low-dose beta-rashid High intensity statin And depending on the findings of the catheterization further recommendations will be made. Thank you for allowing me to participate in the care of your patient. Please don't hesitate to call if any issues arise. HPI Consult Data Date of Consult: 06/19/22 HPI Narrative HPI Narrative: CARINA GARDUNO, is a 67 M who presents to the emergency room after experiencing over a week of chest discomfort intermittent epigastric. He says however that it has been worse over the last few days. He therefore did. Decided to present to the emergency room. He does deny any dizziness or diaphoresis near syncope or syncope. It was initially with exertion and then it appeared to be with rest. He does have a history of hypertension and hyperlipidemia. He does not have a history of diabetes. In the emergency room he was evaluated he was noted to have lateral EKG changes and abnormal cardiac enzymes. Cardiology was called for further evaluation and management. [facility] Medical History Back pain HLD (hyperlipidemia) Home Medications glucosamine sulf dipot chlr,msm,chond 550 mg-C 30 mg-enmanuel 1 mg capsule 2 ea PO DAILY 06/08/20 [History Last Taken Unknown] ibuprofen 800 mg tablet 800 mg PO PRN PRN Pain 1-10 Or Fever 06/08/20 [History Last Taken Unknown] krill 1,000 mg-omega-3 170 mg-dha 50 mg-epa 80 zr-gktkkc-kxnma capsule 3 ea PO DAILY 06/08/20 [History Last Taken Unknown] acetaminophen 650 mg tablet,extended release 1,300 mg PO DAILY 06/19/22 [History Last Taken Unknown] glucosamine-chondroitin 250 mg-200 mg tablet (Osteo Bi-Flex) 2 tab PO BID 06/19/22 [History Last Taken Unknown] meloxicam 15 mg tablet 15 mg PO DAILY 06/19/22 [History Last Taken Unknown] simvastatin 10 mg tablet 10 mg PO DAILY 06/19/22 [History Last Taken Unknown] Allergy/AdvReac Type Severity Reaction Status Date / Time Tetracyclines AdvReac Vomiting Verified 06/19/22 07:25 Surgical History History of hernia repair Social History Smoking Status: Never smoker ROS Constitutional Constitutional: Denies fever(s) or weight loss Eyes Eyes: Reports systems reviewed and no addt'l complaints, except as documented ENT HEENT: Reports systems reviewed and no addt'l complaints, except as documented Cardiovascular Cardiovascular: Denies chest pain at rest, chest pain with activity, dyspnea at rest, dyspnea on exertion, edema, palpitations or paroxysmal nocturnal dyspnea Respiratory/Chest Respiratory/Chest: Denies dyspnea on exertion, productive cough, shortness of breath at rest or shortness of breath with exertion Gastrointestinal Gastrointestinal: Denies change in bowel habits, nausea, vomiting or weight changes Genitourinary Genitourinary: Denies difficulty urinating Musculoskeletal Musculoskeletal: Denies joint stiffness or muscle weakness Integumentary Integumentary: Denies lesions Neurologic Neurologic: Denies dizziness or syncope Psychiatric Psychiatric: Denies anxiety Endocrine Endocrinology: Denies excessive sweating or fatigue Hematologic/Lymphatic Hematologic/Lymphatic: Denies anemia Allergic/Immunologic Allergic/Immunologic: Denies seasonal rhinorrhea Physical Exam Const alert, oriented x3 and no apparent distress General Appearance: cooperative HEENT hearing grossly normal bilaterally Head and Scalp: atraumatic Eyes EOMs intact bilaterally Neck General: normal visual inspection Chest inspection of chest normal and palpation of chest normal Resp normal respiratory effort Auscultation: clear to auscultation bilaterally Cardio regular rate, regular rhythm, S1 normal heart sound and S2 normal heart sound Jugular Venous Distention: JVD GI normal to inspection, nondistended, normoactive bowel sounds Extremity normal capillary refill and no pedal edema Peripheral Pulses: Yes pulses 2+ throughout and femoral pulses present Skin no rashes or lesions noted Neuro oriented x3 and CN's II-XII intact bilaterally Psych Appearance: grossly normal and appropriate Risk Stratification Risk Stratification Applicable: Yes Age >/= 65: Yes >/= 3 CAD Risk Factors (HTN, HLD, DM, family hx of CAD, or current smoker): Yes Aspirin Use in the Past 7 Days: No Severe Angina (>/= episodes in 24 hours): Yes EKG ST Changes >/= 0.5mm: Yes Positive Cardiac Marker: Yes ASHLYN Risk Stratification Score: 5 ASHLYN % Risk: 25% Risk Objective Data Vital Signs: Vital Signs Temp Pulse Resp BP Pulse Ox O2 Del Method 97.8 F 70 18 118/78 96 Room Air 06/19/22 07:26 06/19/22 08:31 06/19/22 08:31 06/19/22 08:31 06/19/22 08:31 06/19/22 08:31 Oxygen Delivery Method Room Air Weight: 210 lb Body Mass Index (BMI) 31.0 Lab / Micro Data Result Diagrams: 06/19/22 07:40 06/19/22 07:40 Labs: Laboratory Results - last 24 hr 06/19/22 07:40: WBC 8.0, RBC 5.39, Hgb 15.3, Hct 48.2, MCV 89.4, MCH 28.4, MCHC 31.7 L, RDW Std Deviation 44.7 H, RDW Coeff of Maggi 13.7, Plt Count 232, MPV 10.0, Immature Gran % (Auto) 0.500, Neut % (Auto) 58.6, Lymph % (Auto) 25.0, [place] % (Auto) 10.7 H, Eos % (Auto) 4.6, Baso % (Auto) 0.6, Absolute Neuts (auto) 4.7, Absolute Lymphs (auto) 1.99, Nucleated RBC % 0 06/19/22 07:40: Sodium 140, Potassium 4.5, Chloride 104, Carbon Dioxide 29.0, Anion Gap 7, BUN 24 H, Creatinine 1.27, Estim Creat Clear Calc 56.44, Est GFR (MDRD) Af Amer 73, Est GFR (MDRD) Non-Af 60, BUN/Creatinine Ratio 18.9, Glucose 121 H, Calcium 9.6, Total Bilirubin 0.50, Direct Bilirubin 0.15, AST 46 H, ALT 47, Alkaline Phosphatase 48, Troponin I High Sens 6049 H*, Total Protein 7.6, Albumin 4.1, Globulin 3.5, Lipase 160 Cardiology Labs/Tests 06/19/22 07:40: WBC 8.0, RBC 5.39, Hgb 15.3, Hct 48.2, MCV 89.4, MCH 28.4, MCHC 31.7 L, Plt Count 232, MPV 10.0, Immature Gran % (Auto) 0.500, Neut % (Auto) 58.6, Lymph % (Auto) 25.0, [place] % (Auto) 10.7 H, Eos % (Auto) 4.6, Baso % (Auto) 0.6, Absolute Neuts (auto) 4.7, Nucleated RBC % 0 06/19/22 07:40: Sodium 140, Potassium 4.5, Chloride 104, Carbon Dioxide 29.0, Anion Gap 7, BUN 24 H, Creatinine 1.27, Est GFR (MDRD) Af Amer 73, Est GFR (MDRD) Non-Af 60, BUN/Creatinine Ratio 18.9, Glucose 121 H, Calcium 9.6, Total Bilirubin 0.50, Direct Bilirubin 0.15 Rhythm: EKG: ECHO: Stress Test: Cardiac Cath: PCI: CT Surgery: Holter monitor: EPS: PPM: CXR: Chest CT Scan: Radiography Diagnostic Testing: Radiology Impression Chest X-Ray 06/19/22 07:34 IMPRESSION: Degenerative changes, as described above. No demonstrated acute cardiopulmonary process. Electronically Signed: John Claire MD at 8:15 EST Reading Location ID and State: [facility] / [place] , Service support ,
[2022-06-19 09:47] LABS: Reflex Troponin-HS? (from REC) Y
[2022-06-19] MEDS: 0.9% Normal Saline 1,000 ML 15 ML IV (10:11)
[2022-06-19 10:40] LABS: Troponin-I HS 5694 pg/mL (3.0-78.0)
--- NOTE | 2022-06-19 12:09 | ECHOD_ITS ---
Reason For Study: CAD/ASHD Procedure This was a 2D Doppler, Color Flow transthoracic echocardiogram. Exam performed portable in patient room. Left Ventricle Normal LV size. Mild concentric left ventricular hypertrophy. The estimated ejection fraction is 50 %. Mild segmental systolic dysfunction (see wall motion). Stage 1 diastolic dysfunction. Infero- Basal: Hypokinetic. Mid-inferoseptal : Mildly hypokinetic. Mid-Inferior: Mildly hypokinetic. There are regional wall motion abnormalities as specified. Right Ventricle Normal RV size. Normal systolic function. Atria The left atrium is mildly enlarged. Normal right atrium. Mitral Valve Mild diffuse mitral valve thickening. Mild (1+) eccentric mitral valve insufficiency. Tricuspid Valve Normal tricuspid valve. Aortic Valve Normal aortic valve. Pulmonic Valve Normal pulmonic valve. Great Vessels Severely dilated aortic root. The pulmonary artery is normal size. Normal inferior vena cava. Pericardium/Pleural No pericardial effusion. MMode/2D Measurements & Calculations LVIDd: 5.8 cm IVSd: 1.4 cm Ao root diam: 5.9 cm LVIDs: 4.1 cm LVPWd: 1.4 cm LA dimension: 3.3 cm FS: 29.0 % LAV(MOD-bp): 68.1 ml LVAd ap4: 43.2 cm2 SV(MOD-sp4): 83.3 ml LAV(MOD-bp) Indexed: 32.3 ml/m2 LVLd ap4: 8.6 cm LAV(MOD-sp2): 108.9 ml EDV(MOD-sp4): 170.2 ml LAV(MOD-sp4): 43.8 ml EDV(sp4-el): 183.5 ml LVAs ap4: 28.2 cm2 LVLs ap4: 7.5 cm ESV(MOD-sp4): 86.9 ml ESV(sp4-el): 90.3 ml EF(MOD-sp4): 48.9 % EF(sp4-el): 50.8 % SV(sp4-el): 93.2 ml LA A4 area: 18.5 cm2 RA A4 area: 22.8 cm2 Time Measurements MV dec time: 0.34 sec Doppler Measurements & Calculations MV E max de: 62.5 cm/sec Lat Peak E' De: 9.8 cm/sec Med Peak E' De: 8.1 cm/sec MV A max de: 82.1 cm/sec E/E' lat: 6.3 E/E' med: 7.7 MV E/A: 0.76 MV V2 max: 92.1 cm/sec Ao V2 max: 141.2 cm/sec AI max de: 504.2 cm/sec MV max P.4 mmHg Ao max P.0 mmHg AI max P.7 mmHg MV V2 mean: 45.5 cm/sec Ao V2 mean: 104.4 cm/sec MV mean P.00 mmHg Ao mean P.8 mmHg AI dec slope: 253.9 cm/sec2 MV V2 VTI: 18.3 cm Ao V2 VTI: 33.6 cm AI P1/2t: 581.6 msec AV (velocity ratio): 1.1 LV V1 max: 137.8 cm/sec MR max de: 537.4 cm/sec PA V2 max: 65.3 cm/sec LV V1 max P.6 mmHg MR max P.5 mmHg PA V2 mean: 49.8 cm/sec LV V1 mean P.5 mmHg MR mean de: 407.1 cm/sec LV V1 mean: 101.8 cm/sec MR mean P.2 mmHg LV V1 VTI: 36.8 cm MR VTI: 216.7 cm ECHO/Echo Complete Interpretation Summary Normal LV size. The estimated ejection fraction is 50 %. Mild segmental systolic dysfunction (see wall motion). The left atrium is mildly enlarged. Mild concentric left ventricular hypertrophy. Stage 1 diastolic dysfunction. Severely dilated aortic root. Ordering Physician: Jose Justice Referring Physician: Todd Rivas M.D. Performed By: Marquez Vigil RCS
--- NOTE | 2022-06-19 12:45 | EKG12_ITS ---
Test Reason : AM EKG Blood Pressure : / mmHG Vent. Rate : 067 BPM Atrial Rate : 067 BPM P-R Int : 312 ms QRS Dur : 094 ms QT Int : 432 ms P-R-T Axes : -01 068 -69 degrees QTc Int : 456 ms Sinus rhythm with 1st degree A-V block Inferior infarct , age undetermined Poor R wave progression Consider voltage criteria for LVH Abnormal ECG Confirmed by NIMISHA HUNTLEY, PEARL ([id number]), editor at large RUTH BRADLEY ([id number]) on 06/21/2022 1:19:31 PM Referred By: Confirmed By:PEARL BANSAL MD
--- NOTE | 2022-06-19 12:59 | CL.D_ITS ---
Patient Name: CARINA GARDUNO Study Date: 06/19/2022 Performing: Jose Justice MD Ht: 69 inches 175.26 cm : 1955 Wt: 209.99 lbs 95.25 kg Age: 67 Gender: male BSA: 2.11 PROCEDURE(S) PERFORMED [id number] ROOT ANGIO WITH HEART CATH [id number])LHC/COR CLINICAL PROFILE AND INDICATIONS Indications: ACS > 24 hrs Heart Failure: None CAD Presentations: Non-STEMI. Symptom onset Date/Time: Time Not Available CONCLUSIONS Totally occluded right coronary artery with [id number] collaterals moderate disease in the LAD and mild disease in the circumflex artery with left ventricular systolic dysfunction. RECOMMENDATIONS Medical therapy DESCRIPTION OF PROCEDURE The patient arrived to the procedure lab. The risks and benefits of the procedure as well as a full description of our services here and current unavailability of surgical backup were fully explained to the patient and/or their significant other prior to the catheterization. The Timeout was completed, verifying the correct patient and procedure. The patient's procedural site was prepped and draped in the usual fashion. Local anesthetic was given subcutaneously to right radial region with Lidocaine 2%. Using a modified Seldinger technique, arterial access was obtained via the right radial artery, a 6Fr sheath was inserted. Left Coronary Artery selective angiography was performed in multiple views using a 5 Fr. 4.0 [place] catheter. Ascending (root) aorta selective angiography was then performed in single view. Ascending (root) aorta selective angiography was then performed in single view. Right Coronary Artery selective angiography was then performed in multiple views using a 6 Fr. JR 4-125cm catheter.The arterial sheath was pulled and a TR Band was applied for hemostasis. 10cc of air CORONARY ANGIOGRAPHY DOMINANCE: Right Dominant LEFT MAIN: Angiographically normal LEFT ANTERIOR DESCENDING ARTERY: Moderate disease noted in the left anterior descending artery with [id number] collaterals CIRCUMFLEX ARTERY: Mild luminal irregularities RIGHT CORONARY ARTERY: Right coronary artery has an abnormal takeoff and the appears to be a high-grade stenosis in the vessel is very tortuous with [id number] collaterals noted. COLLATERAL FLOW: Collateral flow from Left to Right AORTIC ROOT: Dilated COMPLICATIONS No Complications PROCEDURE MEDICATIONS Fentanyl 50 mcg IV Versed 1 mg IV Versed 1 mg IV Oxygen: 2 L/min via nasal cannula Brilinta 180 mg PO @ 06/19/2022 11:43:34 Heparin given IA 06/19/2022 11:04:15 Heparin 7000 unit(s) IV 06/19/2022 11:45:53 Verapamil 2.5mg, Ntg 100mcgs, 3000 units of Heparin given IA 06/19/2022 11:04:15 SUMMARY OF HEMODYNAMIC DATA Time AIR REST ECG 10:48:20 AO 84/57 (70) SA 11:05:12 AO 118/66 (86) 11:47:48 12:52:33 Signed By Jose Justice MD On 06/19/2022 12:58:04 Jose Justice MD
--- NOTE | 2022-06-19 14:17 | CRPHASE1 ---
Patient Communication PHII Cardiac Rehab Discussed with Patient:: Yes Guide to Cardiac Rehab Given to Patient:: Yes Cardiac Rehab Facility Choice List Given to Patient:: Yes Choice Program [facility] CR PHII:: Communication Given to CR Shared Services And Outsourcing Manager:: Amalia Siddiqui Phase II Cardiac Rehab:: Yes Sessions:: 36 sessions - 3 days/wk, 12 weeks Cardiac Rehabilitation Info Cardiac Rehabilitation Program Information: Cardiac Rehab The cardiac rehab team at [facility] consists of highly skilled exercise physiologists, nurses, respiratory therapists and physicians working together with you. Our purpose is to help you have a full recovery and achieve the goals you set for yourself. Over the years many of our patients have returned to activities they assumed they would never do again! We can help restore your confidence and motivation to make lifestyle changes that can have a significant impact on your health and quality of life! We can help answer questions and concerns you may have about exercise, lifestyle, medications, diet, stress and anxiety which are common following a hospitalization. WE monitor ECG and vital signs during exercise and discuss your progress with you and report to your physician(s). Cardiac Rehab is proven to help reduce readmissions, improve functional capacity and lower recurrence of problems with your heart. Our Cardiac Rehab program is Certified by the [place] [employer] Pulmonary [employer] (AACVPR) and Accredited by the [place] [employer] through our [facility]. You can contact us at . We invite you to call us with your questions or to get started in our program. If you have other questions or concerns be sure to ask your physician/provider during your follow-up visit. WE look forward to seeing you!
--- NOTE | 2022-06-19 14:17 | CRPH1.INSTRU ---
General Education CAD and cardiac anatomy and function:: Patient communicates acknowledgment, Needs reinforcement Explanation of diagnoses and procedures:: Patient communicates acknowledgment, Needs reinforcement Sign/Symptoms of [place]:: Patient communicates acknowledgment, Needs reinforcement Antiplatelet therapy: Patient communicates acknowledgment, Needs reinforcement Proper use of NTG-SL: Patient communicates acknowledgment, Needs reinforcement Emergency procedures and activation of EMS: Patient communicates acknowledgment, Needs reinforcement Compliance of all prescribed medications: Patient communicates acknowledgment, Needs reinforcement Dyslipidemia Patient Dyslipidemia Risk Factors Are:: Total Cholesterol, Triglycerides, HDL, LDL Recommendations Include:: Lipid profile not available, Therapeutic Lifestyle Change dietary guidelines Dyslipidemia Response Code:: Patient communicates acknowledgment, Needs reinforcement Overweight/Obesity Patient Overweight/Obesity Risk Factors Are:: Obesity - > or = 30 Recommendations Include:: Weight loss of 5-10%, Reduced calorie diet, Exercise 5-7 times/week Overweight/Obesity:: Patient communicates acknowledgment, Needs reinforcement Sedentary Patient Sedentary Risk Factors Are:: Lack of regular exercise Recommendations Include:: Aerobic exercise 5-7 times/week for 20-30 minutes continuously, Benefits of regular exercise Sedentary Response Code:: Patient communicates acknowledgment, Needs reinforcement
[2022-06-19] MEDS: Atorvastatin Calcium 40 MG Tablet PO (20:53)
[2022-06-19] MEDS: TICAGRELOR 90 MG TABLET PO (20:53)
[2022-06-20 02:58] VITALS: BP 114/64; PULSE 70; RESP 18; TEMP 36.6; O2SAT 96
[2022-06-20 05:50] LABS: Absolute Lymphocyte Count 1.41 X10^3/uL (0.83-4.51); Absolute Neutrophil Count 5.4 X10^3/uL (2.0-7.7); Basophil# 0.04 X10^3/uL; Basophil% 0.5 % (0-1); Eosinophil# 0.38 X10^3/uL; Eosinophils% 4.8 % (0-5); Hematocrit 45.2 % (40-54); Hemoglobin 15.1 g/dL (13.0-16.5); Lymphocyte # 1.41 X10^3/ul (0.83-4.51); Lymphocyte % 17.8 % (19-41); Mean Corp Hgb Conc 33.4 g/dL (32-36); Mean Corpuscular Hgb 28.4 pg (27.0-32.0); Mean Platelet Vol. 10.3 fl (6.2-12.0); Monocyte# 0.65 X10^3/uL; Monocyte% 8.2 % (0-10); NRBC Flagged by Analyzer 0 % (0-5); Neutrophil # 5.41 X10^3/uL (2.7-7.7); Neutrophil % 68.6 % (47-70); Platelet Count 216 K/mm3 (150-450); RBC Distribution Width CV 13.7 % (11.6-14.6); RBC Distribution Width SD 42.4 fl (35.1-43.9); Red Blood Count 5.32 M/mm3 (4.6-6.2); White Blood Count 7.9 K/mm3 (4.4-11.0)
[2022-06-20 06:00] VITALS: BMI 31.1
[2022-06-20 06:29] LABS: ALB/GLOB Ratio 1.1 RATIO (0.9-2.4); AST(SGOT) 69 U/L (15-37); Alanine Aminotransfer ALT/SGPT 42 U/L (16-61); Albumin, Serum 3.7 g/dL (3.2-5.0); Alkaline Phosphatase 46 U/L (45-117); Anion Gap 8 (5-15); BUN 20 mg/dL (7-18); Bilirubin, Direct 0.17 mg/dL (0.00-0.30); Calcium,Total 9.2 mg/dL (8.5-10.1); Chloride 104 mmol/L (98-107); Creatinine, Serum 1.11 mg/dL (0.70-1.30); EST Glomerular Filtration Rate 70 mL/min (>60); Est Glom Filt Rate - Afr Amer 85 mL/min (>60); Estimated Creatinine Clearance 64.58 ml/min; Globulin 3.5 g/dL (2.2-4.2); Glucose 111 mg/dL (74-106); Magnesium 2.1 mg/dL (1.6-2.6); Potassium 4.4 mmol/L (3.5-5.1); Protein, Total 7.2 g/dL (6.4-8.2); Sodium Level 136 mmol/L (136-145); Thyroid Stim Hormone (TSH) 3.14 uIU/mL (0.358-3.74)
--- NOTE | 2022-06-20 07:40 | PCM.PN.CARD ---
Subjective Subjective Patient seen and evaluated. Feels stable today. Objective Data Vital Signs: Vital Signs Temp Pulse Resp BP Pulse Ox O2 Del Method 97.8 F 70 18 114/64 96 Room Air 06/20/22 02:58 06/20/22 02:58 06/20/22 02:58 06/20/22 02:58 06/20/22 02:58 06/20/22 03:17 Oxygen Delivery Method Room Air Weight: 210 lb 15.718 oz Body Mass Index (BMI) 31.1 Intake & Output: Intake and Output for Last 24 Hours 06/18/22 06/19/22 06/20/22 23:59 23:59 23:59 Intake Total 947.25 / 1067.25 120 / 120 Output Total 600 / 600 Balance 347.25 / 467.25 120 / 120 Lab / Micro Data Result Diagrams: 06/20/22 04:50 06/20/22 04:50 Labs: Laboratory Results - last 24 hr 06/19/22 07:40: WBC 8.0, RBC 5.39, Hgb 15.3, Hct 48.2, MCV 89.4, MCH 28.4, MCHC 31.7 L, RDW Std Deviation 44.7 H, RDW Coeff of Maggi 13.7, Plt Count 232, MPV 10.0, Immature Gran % (Auto) 0.500, Neut % (Auto) 58.6, Lymph % (Auto) 25.0, [place] % (Auto) 10.7 H, Eos % (Auto) 4.6, Baso % (Auto) 0.6, Absolute Neuts (auto) 4.7, Absolute Lymphs (auto) 1.99, Nucleated RBC % 0 06/19/22 07:40: Sodium 140, Potassium 4.5, Chloride 104, Carbon Dioxide 29.0, Anion Gap 7, BUN 24 H, Creatinine 1.27, Estim Creat Clear Calc 56.44, Est GFR (MDRD) Af Amer 73, Est GFR (MDRD) Non-Af 60, BUN/Creatinine Ratio 18.9, Glucose 121 H, Calcium 9.6, Total Bilirubin 0.50, Direct Bilirubin 0.15, AST 46 H, ALT 47, Alkaline Phosphatase 48, Troponin I High Sens 6049 H*, Total Protein 7.6, Albumin 4.1, Globulin 3.5, Lipase 160 06/19/22 10:09: Troponin I High Sens 5694 H* 06/20/22 04:50: WBC 7.9, RBC 5.32, Hgb 15.1, Hct 45.2, MCV 85.0, MCH 28.4, MCHC 33.4 D, RDW Std Deviation 42.4, RDW Coeff of Maggi 13.7, Plt Count 216, MPV 10.3, Immature Gran % (Auto) 0.100, Neut % (Auto) 68.6, Lymph % (Auto) 17.8 L, [place] % (Auto) 8.2, Eos % (Auto) 4.8, Baso % (Auto) 0.5, Absolute Neuts (auto) 5.4, Absolute Lymphs (auto) 1.41, Nucleated RBC % 0 06/20/22 04:50: Sodium 136, Potassium 4.4, Chloride 104, Carbon Dioxide 24.0, Anion Gap 8, BUN 20 H, Creatinine 1.11, Estim Creat Clear Calc 64.58, Est GFR (MDRD) Af Amer 85, Est GFR (MDRD) Non-Af 70, BUN/Creatinine Ratio 18.0, Glucose 111 H, Calcium 9.2, Magnesium 2.1, Total Bilirubin 0.70, Direct Bilirubin 0.17, AST 69 H, ALT 42, Alkaline Phosphatase 46, Total Protein 7.2, Albumin 3.7, Globulin 3.5, Albumin/Globulin Ratio 1.1, TSH 3.14 Cardiology Labs/Tests 06/19/22 07:40: WBC 8.0, RBC 5.39, Hgb 15.3, Hct 48.2, MCV 89.4, MCH 28.4, MCHC 31.7 L, Plt Count 232, MPV 10.0, Immature Gran % (Auto) 0.500, Neut % (Auto) 58.6, Lymph % (Auto) 25.0, [place] % (Auto) 10.7 H, Eos % (Auto) 4.6, Baso % (Auto) 0.6, Absolute Neuts (auto) 4.7, Nucleated RBC % 0 06/19/22 07:40: Sodium 140, Potassium 4.5, Chloride 104, Carbon Dioxide 29.0, Anion Gap 7, BUN 24 H, Creatinine 1.27, Est GFR (MDRD) Af Amer 73, Est GFR (MDRD) Non-Af 60, BUN/Creatinine Ratio 18.9, Glucose 121 H, Calcium 9.6, Total Bilirubin 0.50, Direct Bilirubin 0.15 06/20/22 04:50: WBC 7.9, RBC 5.32, Hgb 15.1, Hct 45.2, MCV 85.0, MCH 28.4, MCHC 33.4 D, Plt Count 216, MPV 10.3, Immature Gran % (Auto) 0.100, Neut % (Auto) 68.6, Lymph % (Auto) 17.8 L, [place] % (Auto) 8.2, Eos % (Auto) 4.8, Baso % (Auto) 0.5, Absolute Neuts (auto) 5.4, Nucleated RBC % 0 06/20/22 04:50: Sodium 136, Potassium 4.4, Chloride 104, Carbon Dioxide 24.0, Anion Gap 8, BUN 20 H, Creatinine 1.11, Est GFR (MDRD) Af Amer 85, Est GFR (MDRD) Non-Af 70, BUN/Creatinine Ratio 18.0, Glucose 111 H, Calcium 9.2, Magnesium 2.1, Total Bilirubin 0.70, Direct Bilirubin 0.17 Rhythm: EKG: ECHO: Stress Test: Cardiac Cath: PCI: CT Surgery: Holter monitor: EPS: PPM: CXR: Chest CT Scan: Radiography Diagnostic Testing: Radiology Impression Chest X-Ray 06/19/22 07:34 IMPRESSION: Degenerative changes, as described above. No demonstrated acute cardiopulmonary process. Electronically Signed: John Claire MD at 8:15 EST Reading Location ID and State: [address] [place] [address] , Service support , Echocardiogram 06/19/22 12:09 Interpretation Summary Normal LV size. The estimated ejection fraction is 50 %. Mild segmental systolic dysfunction (see wall motion). The left atrium is mildly enlarged. Mild concentric left ventricular hypertrophy. Stage 1 diastolic dysfunction. Severely dilated aortic root. Ordering Physician: Jose Justice Referring Physician: Todd Rivas M.D. Performed By: Marquez Vigil RCS Physical Exam Const alert, oriented x3 and no apparent distress General Appearance: cooperative HEENT hearing grossly normal bilaterally Head and Scalp: atraumatic Eyes EOMs intact bilaterally Neck General: normal visual inspection Chest inspection of chest normal and palpation of chest normal Resp normal respiratory effort Auscultation: clear to auscultation bilaterally Cardio regular rate, regular rhythm, S1 normal heart sound and S2 normal heart sound Jugular Venous Distention: JVD GI normal to inspection, nondistended, normoactive bowel sounds Extremity normal capillary refill and no pedal edema Peripheral Pulses: Yes pulses 2+ throughout and femoral pulses present Skin no rashes or lesions noted Neuro oriented x3 and CN's II-XII intact bilaterally Psych Appearance: grossly normal and appropriate Assessment & Plan Assessment/Plan (1) Non-STEMI (non-ST elevated myocardial infarction): PLAN: He presents with a non-ST elevation myocardial infarction. Left heart catheterization demonstrated normal left main coronary artery Left anterior descending artery with moderate disease. Left circumflex artery with mild disease. 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 [id number] collaterals could be seen. Based on the above angiographic findings attempts were made to engage the right coronary ostium but this was unsuccessful due to the positioning as well as the dilated aorta. It was decided that this patient had made collaterals and was free of chest discomfort medical therapy will be recommended. (2) Dilated aortic root: PLAN: Patient appears to have a dilated aortic root. I would recommend a CT scan this morning to get an exact quantification of the above. In addition a referral to a tertiary care center would be appropriate for an opinion. Thank you for allowing me to participate in the care of your patient. Please don't hesitate to call if any issues arise.
[2022-06-20 07:42] VITALS: O2SAT 99
--- NOTE | 2022-06-20 07:43 | CT_ITS ---
STUDY: CTA CHEST REASON FOR EXAM: Male, 67 years old. Dilated aortic root RADIATION DOSAGE (If Supplied By Facility): CTDIvol = ( 14.81 ) mGy, DLP = ( 637.16 ) mGycm TECHNIQUE: The examination was performed with the intravenous administration of IV 100mL Isovue-370. Post-processing of the angiographic images was performed, with multiplanar reformation and 3D reconstruction. Individualized dose optimization techniques were used for this CT. COMPARISON: None. FINDINGS: Normal enhancement of the main pulmonary artery and right and left pulmonary arteries. Normal enhancement of the bilateral peripheral pulmonary arteries. There is no demonstrated pulmonary embolism. There is aneurysmal dilatation of the ascending aorta. The transverse diameter of the ascending aorta measures 54.8 mm''s. There is no demonstrated aortic dissection. Normal heart and pericardium. Normal mediastinum. Normal hilar regions. Normal visualized trachea and bronchi. The lungs are well expanded. Normal pulmonary parenchyma. Normal pleura. Normal chest wall structures. There are degenerative changes of thoracic spine. Small hiatal hernia. CT/CTA Chest W/WO Contrast IMPRESSION: Dilatation of the root of the ascending thoracic aorta with a transverse dimension of 54.8 mm. Electronically Signed: Matt Aaron MD at 8:55 EST ,
[2022-06-20 08:50] VITALS: BP 107/74; PULSE 68; RESP 16; TEMP 36.5; O2SAT 98
[2022-06-20] MEDS: Aspirin E.C. 81 MG Tablet PO (08:54)
[2022-06-20] MEDS: TICAGRELOR 90 MG TABLET PO (08:54)
--- NOTE | 2022-06-20 10:00 | EKG12_ITS ---
Test Reason : CP ADMIT Blood Pressure : / mmHG Vent. Rate : 065 BPM Atrial Rate : 065 BPM P-R Int : 378 ms QRS Dur : 096 ms QT Int : 430 ms P-R-T Axes : 034 063 239 degrees QTc Int : 447 ms Sinus rhythm with 1st degree A-V block with occasional Premature ventricular complexes Possible Left atrial enlargement Left ventricular hypertrophy with repolarization abnormality ( Sokolow-Hendricks , Romhilt-Diggs ) Inferior infarct , age undetermined Abnormal ECG Confirmed by NIMISHA HUNTLEY, PEARL ([id number]), publication editor RUTH BRADLEY ([id number]) on 06/21/2022 1:21:55 PM Referred By: JONATHAN Confirmed By:PEARL BANSAL MD
--- NOTE | 2022-06-20 10:21 | CL.I_ITS ---
Patient Name: CARINA GARDUNO Study Date: 06/19/2022 Performing: Rosalind Siddiqui MD Ht: 69 inches 175.26 cm : 1955 Wt: 209.99 lbs 95.25 kg Age: 67 Gender: male BSA: 2.11 PROCEDURE(S) PERFORMED DC11-(46854)AO ROOT ANGIO WITH HEART CATH IC12-(76220/C9600)EWA W/WO PTCA, SINGLE CORONARY ARTERY CLINICAL PROFILE AND CO-MORBIDITIES Indications: ACS > 24 hrs Heart Failure: None CAD Presentations: Non-STEMI. Symptom onset Date/Time: Time Not Available CONCLUSIONS Unsuccessful PTCA of dRCA RECOMMENDATIONS DESCRIPTION OF PROCEDURE The patient arrived to the procedure lab. The risks and benefits of the procedure as well as a full description of our services here and current unavailability of surgical backup were fully explained to the patient and/or their significant other prior to the catheterization. The Timeout was completed, verifying the correct patient and procedure. The patient's procedural site was prepped and draped in the usual fashion. Local anesthetic was given subcutaneously to right radial region with Lidocaine 2% Using a modified Seldinger technique,arterial access was obtained via the right radial artery, a 6Fr sheath was inserted. Left Coronary Artery selective angiography was performed in multiple views using a 5 Fr. 4.0 [place] catheter. Ascending (root) aorta selective angiography was then performed in single view. Ascending (root) aorta selective angiography was then performed in single view. Right Coronary Artery selective angiography was then performed in multiple views using a 6 Fr. JR 4-125cm catheter.The images were reviewed and options discussed. A decision was then made to proceed with an Intervention, IVUS or other adjunct procedure. Arterial sheath was exchanged for a 6 Fr Sheath. AL 1 Guide catheter was inserted and engaged into the RCA. BMW Guide wire was advanced to the RCA. Whisper Guide wire was inserted as a kurt wire The arterial sheath was pulled and a TR Band was applied for hemostasis. 10cc of air INTERVENTION INFORMATION LESION SITE: RCA (Distal) Lesion Complexity: High/C, chronic total occlusion: Yes, lesion at bifurcation: No, thrombus present: Yes, lesion length: 20 mm, culprit lesion: Yes, Previously treated lesion: No Pre Stenosis: 100 % Pre intervention ASHLYN flow: 0 PROCEDURE: Unsuccessful PTCA as we could not cross the lesion with the guidewire. The lesion appears to be chronic total occlusion Post Stenosis: 100 % Post intervention ASHLYN flow: 0 Lesion Devices: Reagan .014 190cm BMW [place] Straight Cordis 6 Fr AL1.0 100cm Guide Catheter [employer] 6 Faroese GuideLiner Reagan .014 190cm HT Whisper MS Straight COMPLICATIONS No Complications PROCEDURE MEDICATIONS Fentanyl 50 mcg IV Versed 1 mg IV Versed 1 mg IV Oxygen: 2 L/min via nasal cannula Brilinta 180 mg PO @ 06/19/2022 11:43:34 Heparin given IA 06/19/2022 11:04:15 Heparin 7000 unit(s) IV 06/19/2022 11:45:53 Verapamil 2.5mg, Ntg 100mcgs, 3000 units of Heparin given IA 06/19/2022 11:04:15 SUMMARY OF HEMODYNAMIC DATA Time AIR REST ECG 10:48:20 AO 84/57 (70) SA 11:05:12 AO 118/66 (86) 11:47:48 AIR REST 12:52:33 Signed By Rosalind Siddiqui MD On 06/20/2022 10:20:28 Rosalind Siddiqui MD
--- NOTE | 2022-06-20 13:25 | DCINST_ITS ---
Discharge Instructions Diet Discharge Diet: - (DASH diet) Activity Discharge Activity: Return to Normal Activity Follow Up Care Test Results: Test results from this visit will be discussed in further detail at your follow- up appointment, if applicable. Discharge Plan Admission Admit Date/Time: 06/19/22 09:23 Primary Reason for Your Visit: Chest pain Attending Provider: Cielo Rich Primary Care Provider: Todd Rivas Consulting Providers: Jose Justice Instructions Patient Instructions: CAD Additional Instructions / Restrictions: DISCHARGE INSTRUCTIONS PLEASE READ *Please take this with you to your next doctors appointment* -You were noted to have a blockage in one of your arteries that is presently being managed with medication -You have had several medication changes, please stop taking simvastatin as this will be replaced with atorvastatin 40 mg daily -You will need to take aspirin 81 mg daily and metoprolol tartrate 25 mg twice a day -Your new medications have been sent to your preferred pharmacy on file, the [facility] in [place], [place] -It is recommended with heart disease that you avoid NSAIDs like meloxicam and ibuprofen -It is important that you follow-up with cardiology upon discharge, you have an appointment with a nurse practitioner and Dr. Justice's office on July 05 at 1 PM -Please call your primary care provider's office upon discharge to schedule a hospital follow up within 1 week. -For any concerning signs or symptoms please call 911 or proceed to the nearest emergency department Discharge Orders/Prescriptions Prescriptions: New atorvastatin 40 mg Tablet 40 mg PO QHS 30 Days Qty: 30 0RF aspirin 81 mg Tablet,Delayed Release (Dr/Ec) 81 mg PO BREAKFAST 30 Days Qty: 30 0RF metoprolol tartrate 25 mg Tablet 25 mg PO BID 30 Days Qty: 60 0RF Continued [id number]-mp-[id number]-duq-chu-dinidnl-ast 1 EACH capsule 3 ea PO DAILY glucos sul 4XAw-nle-vfadc-C-Mn 1 EACH capsule 2 ea PO DAILY glucosamine-chondroitin [Osteo Bi-Flex] 250-200 mg Tablet 2 tab PO BID Rx Instructions: give after food/meal Changed acetaminophen 650 mg Tablet Extended Release 650 mg PO DAILY PRN (Reason: prn pain) Qty: 30 0RF Discontinued ibuprofen 800 MG tablet 800 mg PO PRN PRN (Reason: Pain 1-10 Or Fever) meloxicam 15 mg tablet 15 mg PO DAILY Label Comments: Take 1 tablet BY MOUTH ONCE DAILY WITH FOOD simvastatin 10 mg tablet 10 mg PO DAILY Referrals / Follow Up: Todd Rivas MD [Primary Care Provider] - Within 1 Week Avelina Mckinnon PA [Med Staff - [facility]] - 07/05/22 1:00 pm Disposition Disposition (needs filled in before D/C Order can be placed): Home, Self Care
--- NOTE | 2022-06-20 13:33 | PCM.DC.SUM ---
Providers Date of Admission: 06/19/22 Date of Discharge: 06/20/22 Primary Care Physician: Dr. Todd Rivas MD Consultations 06/19/22 12:35 Consult: Cardiology Routine Consulting Provider: Jose Justice Reason for Consult: Chest Pain EMERGENT Consult: No MD Notified: Yes Date Notified: 06/19/22 Time Notified: 09:27 Method of Notification: ED Physician Initiated Reason For Visit: NSTEMI Diagnosis Discharge Diagnosis (1) Non-STEMI (non-ST elevated myocardial infarction): Status: Acute Code(s): I21.4 - Non-ST elevation (NSTEMI) myocardial infarction (2) Dilated aortic root: Status: Acute Code(s): I77.810 - Thoracic aortic ectasia Plan #NSTEMI type I #Dilated aortic root #RCA occlusion Medications at Discharge Home Medications glucosamine sulf dipot chlr,msm,chond 550 mg-C 30 mg-enmanuel 1 mg capsule 2 ea PO DAILY 06/08/20 krill 1,000 mg-omega-3 170 mg-dha 50 mg-epa 80 ro-fvubdf-nkbxf capsule 3 ea PO DAILY 06/08/20 glucosamine-chondroitin 250 mg-200 mg tablet (Osteo Bi-Flex) 2 tab PO BID 06/19/22 acetaminophen 650 mg tablet,extended release 650 mg PO DAILY PRN prn pain #30 tabs 06/20/22 aspirin 81 mg tablet,delayed release 81 mg PO BREAKFAST 30 days #30 tabs 06/20/22 atorvastatin 40 mg tablet 40 mg PO QHS 30 days #30 tabs 06/20/22 metoprolol tartrate 25 mg tablet 25 mg PO BID 30 days #60 tabs 06/20/22 Hospital Course Procedures - (LHC, echocardiogram, CT chest) Summary of Care Provided Minutes Spent on Discharge: 36 Hospital Course: 67-year-old male with history of recent concussion in January, hernia surgery in the past as well, presented to [facility] 06/19/2022 with 1 week of intermittent chest pain. In ED he was found to have troponin of 6049 and cardiology consulted. He was given aspirin and nitroglycerin with improvement in pain and he had left heart cath which showed a an RCA occlusion, it was unable to be stented at that time but patient improved clinically and decision was made to treat medically. Had echocardiogram that demonstrated EF of 50% with mild segmental systolic dysfunction, stage I diastolic dysfunction, mild concentric left ventricular hypertrophy, severely dilated aortic root. CTA chest obtained to further characterize dilation and it read dilation of the root of the ascending thoracic aorta with a transverse dimension of 54.8 mm. Discussed with patient and with cardiology and decision was made for medical management and close outpatient follow-up with outpatient referral to [facility] for the aneurysm. On day of discharge patient reports breathing roughly unchanged, chest pain is better than it had been, no other complaints or acute changes. Discharge instructions as followed: -You were noted to have a blockage in one of your arteries that is presently being managed with medication -You have had several medication changes, please stop taking simvastatin as this will be replaced with atorvastatin 40 mg daily -You will need to take aspirin 81 mg daily and metoprolol tartrate 25 mg twice a day -Your new medications have been sent to your preferred pharmacy on file, the [facility] on [facility]. in [place], [place] -It is recommended with heart disease that you avoid NSAIDs like meloxicam and ibuprofen -It is important that you follow-up with cardiology upon discharge, you have an appointment with a nurse practitioner and Dr. Justice's office on July 05 at 1 PM -Please call your primary care provider's office upon discharge to schedule a hospital follow up within 1 week. -For any concerning signs or symptoms please call 911 or proceed to the nearest emergency department Physical Exam Narrative General: Alert, oriented, no apparent distress HEENT: Atraumatic, normocephalic Eyes: Anicteric, normal conjunctiva, extraocular movements grossly intact Neck: Supple Respiratory: Clear to auscultation bilaterally, normal respiratory effort Cardiovascular: Regular rate and rhythm GI: Soft, nontender, nondistended Extremities: No edema Musculoskeletal: Moving all extremities Neuro: No overt focal neurological deficits Skin: No rashes appreciated Psych: Cooperative Weight / BMI Weight Weight: 95.7 kg Body Mass Index (BMI) 31.1 ABG / Lab / Microbiology Data Result Diagrams: 06/20/22 04:50 06/20/22 04:50 Laboratory: Laboratory Results - last 24 hr 06/20/22 04:50: WBC 7.9, RBC 5.32, Hgb 15.1, Hct 45.2, MCV 85.0, MCH 28.4, MCHC 33.4 D, RDW Std Deviation 42.4, RDW Coeff of Maggi 13.7, Plt Count 216, MPV 10.3, Immature Gran % (Auto) 0.100, Neut % (Auto) 68.6, Lymph % (Auto) 17.8 L, [place] % (Auto) 8.2, Eos % (Auto) 4.8, Baso % (Auto) 0.5, Absolute Neuts (auto) 5.4, Absolute Lymphs (auto) 1.41, Nucleated RBC % 0 06/20/22 04:50: Sodium 136, Potassium 4.4, Chloride 104, Carbon Dioxide 24.0, Anion Gap 8, BUN 20 H, Creatinine 1.11, Estim Creat Clear Calc 64.58, Est GFR (MDRD) Af Amer 85, Est GFR (MDRD) Non-Af 70, BUN/Creatinine Ratio 18.0, Glucose 111 H, Calcium 9.2, Magnesium 2.1, Total Bilirubin 0.70, Direct Bilirubin 0.17, AST 69 H, ALT 42, Alkaline Phosphatase 46, Total Protein 7.2, Albumin 3.7, Globulin 3.5, Albumin/Globulin Ratio 1.1, TSH 3.14 Radiography Diagnostic Testing: Radiology Impression Echocardiogram 06/19/22 12:09 Interpretation Summary Normal LV size. The estimated ejection fraction is 50 %. Mild segmental systolic dysfunction (see wall motion). The left atrium is mildly enlarged. Mild concentric left ventricular hypertrophy. Stage 1 diastolic dysfunction. Severely dilated aortic root. Ordering Physician: Jose Justice Referring Physician: Todd Rivas M.D. Performed By: Marquez Vigil RCS Chest CTA 06/20/22 07:43 IMPRESSION: Dilatation of the root of the ascending thoracic aorta with a transverse dimension of 54.8 mm. Electronically Signed: Matt Aaron MD at 8:55 EST , D/C Instructions Discharge Diet: - (DASH diet) Meaningful Use Info Meaningful Use Diagnoses (Choose all that apply): AMI AMI/Post PCI/Angioplasty Aspirin given w/in 24hrs of arrival?: Yes ASA at discharge?: Yes Statins at discharge?: Yes Fermin/ARB at discharge?: No Reason Fermin/ARB not ordered:: Not indicated Beta Francesca at discharge?: Yes Done w/ Acute NE measure.: Yes Documented LVEF (%): 50 Discharge Plan Admission Admit Date/Time: 06/19/22 09:23 Primary Reason for Your Visit: Chest pain Attending Provider: Cielo Rich Primary Care Provider: Todd Rivas Consulting Providers: Jose Justice Instructions Patient Instructions: CAD Additional Instructions / Restrictions: DISCHARGE INSTRUCTIONS PLEASE READ *Please take this with you to your next doctors appointment* -You were noted to have a blockage in one of your arteries that is presently being managed with medication -You have had several medication changes, please stop taking simvastatin as this will be replaced with atorvastatin 40 mg daily -You will need to take aspirin 81 mg daily and metoprolol tartrate 25 mg twice a day -Your new medications have been sent to your preferred pharmacy on file, the [facility] [place], [place] -It is recommended with heart disease that you avoid NSAIDs like meloxicam and ibuprofen -It is important that you follow-up with cardiology upon discharge, you have an appointment with a nurse practitioner and Dr. Justice's office on July 05 at 1 PM -Please call your primary care provider's office upon discharge to schedule a hospital follow up within 1 week. -For any concerning signs or symptoms please call 911 or proceed to the nearest emergency department Discharge Orders/Prescriptions Prescriptions: New atorvastatin 40 mg Tablet 40 mg PO QHS 30 Days Qty: 30 0RF aspirin 81 mg Tablet,Delayed Release (Dr/Ec) 81 mg PO BREAKFAST 30 Days Qty: 30 0RF metoprolol tartrate 25 mg Tablet 25 mg PO BID 30 Days Qty: 60 0RF Continued gszhr-kh-6-dty-xwl-uzyhpsa-ast 1 EACH capsule 3 ea PO DAILY glucos sul 9PGx-xtl-dwmfd-C-Mn 1 EACH capsule 2 ea PO DAILY glucosamine-chondroitin [Osteo Bi-Flex] 250-200 mg Tablet 2 tab PO BID Rx Instructions: give after food/meal Changed acetaminophen 650 mg Tablet Extended Release 650 mg PO DAILY PRN (Reason: prn pain) Qty: 30 0RF Discontinued ibuprofen 800 MG tablet 800 mg PO PRN PRN (Reason: Pain 1-10 Or Fever) meloxicam 15 mg tablet 15 mg PO DAILY Label Comments: Take 1 tablet BY MOUTH ONCE DAILY WITH FOOD simvastatin 10 mg tablet 10 mg PO DAILY Referrals / Follow Up: Todd Rivas MD [Primary Care Provider] - Within 1 Week Avelina Mckinnon PA [Med Staff - Adv Practice Prof] - 07/05/22 1:00 pm Disposition Disposition (needs filled in before D/C Order can be placed): Home, Self Care Charges/Coding Visit Charges Inpatient E&M: 97479 Disch Hosp >30min
--- NOTE | 2022-06-20 13:45 | CASEMGMT ---
RN CM Face to Face with patient for initial transition planning/care coordination assessment. RN CM introduced self and role at [facility]. Patient lying in bed, alert and oriented. Patient willing to participate in assessment and is able to answer all questions appropriately. Care providers, pharmacy, and demographics verified. Patient wishes to discharge home, denies need for home health at this time. Patient states he has no further needs or concerns at this time. CM to follow for discharge planning needs that may arise. PCP: Rob Specialists: none Preferred Pharmacy: [facility] Insurance: [facility] [place], [place] Prescription Benefit: yes Living Will/HPOA: ye,s significant other Lidia Flowers LNOK: sig other Living Arrangements: Patient lives alone in a single story home. Patient is independent and able to ambulate stairs. Transportation: self DME/HHC: Patient has cane, grab bars, and hip kit at home. No previous HHC or SNF. Disposition Plan: Patient to discharge home with family support and follow-up plans in place. Sarah LUND, RN, CM
[2022-06-20 14:04] VITALS: BP 124/74; PULSE 64; RESP 16; TEMP 36.7; O2SAT 95
--- NOTE | 2022-06-20 15:12 | PHA.DC.MC ---
Pharmacy Service has performed discharge medication reconciliation and counseling for this patient. Patient requested medications be filled at [facility] instead of [facility]. This [facility] called [facility] and spoke to Kandice, requested transfer. Kandice said they would called and transfer Lipitor, ASA and Lopressor. This h let the patient know medications will be transferred to [facility]. 1. ATORVASTATIN 40MG PO QHS 2. ASPIRIN 81MG PO BREAKFAST 3. METOPROLOL TARTRATE 25MG PO BID The patient's discharge medication list was reviewed for discrepancies and discrepancies were resolved. Home Medications glucosamine sulf dipot chlr,msm,chond 550 mg-C 30 mg-enmanuel 1 mg capsule 2 ea PO DAILY 06/08/20 krill 1,000 mg-omega-3 170 mg-dha 50 mg-epa 80 qd-xvllkp-gbpzo capsule 3 ea PO DAILY 06/08/20 glucosamine-chondroitin 250 mg-200 mg tablet (Osteo Bi-Flex) 2 tab PO BID 06/19/22 acetaminophen 650 mg tablet,extended release 650 mg PO DAILY PRN prn pain #30 tabs 06/20/22 aspirin 81 mg tablet,delayed release 81 mg PO BREAKFAST 30 days #30 tabs 06/20/22 atorvastatin 40 mg tablet 40 mg PO QHS 30 days #30 tabs 06/20/22 metoprolol tartrate 25 mg tablet 25 mg PO BID 30 days #60 tabs 06/20/22 The patient was counseled on the following discharge medications and changes in medications for homegoing were reviewed. The Reason for Use, instructions for use, and potential side effects were reviewed for all new medications. The patient's questions regarding all of their medications were answered. The patient was able to verbally demonstrate an understanding of their discharge medications.
== END 2022-06-20 15:59 | disposition home or self-care (01) | DRG 282 ==
LOC: ED 08:12 → PCU 09:07
PROVIDERS: Admitting Provider Internal Medicine; Emergency Provider Student in an Organized Health Care Education/Training Program; PCP Internal Medicine; Visit Provider Internal Medicine
DX: I21.4 Non-ST elevation (NSTEMI) myocardial infarction (principal); E78.5 Hyperlipidemia, unspecified; I77.810 Thoracic aortic ectasia; I10 Essential (primary) hypertension; Z79.82 Long term (current) use of aspirin; Z79.899 Other long term (current) drug therapy; Z53.8 Procedure and treatment not carried out for other reasons
CPT/HCPCS: 36415; 71045; 71275; 80048; 80053; 80076; 82248; 83690; 83735; 84443; 84484; 85025; 92928; 93005; 93306; 93454; 94668; 99152; 99153; 99252; 99285; J7030; Q9957; Q9967; A4216; C1769; C1887; C1894; C9600; G0463

== ENCOUNTER → 2024-07-15 | Outpatient (CLI) | payer MEDICARE, OTHER, SELFPAY ==
--- NOTE | 2024-07-15 10:11 | ECHOD_ITS ---
Reason For Study Reason For Study: Murmur Procedure This was a 2D Doppler, Color Flow transthoracic echocardiogram. Myocardial strain analysis was performed in this exam to aid in the assessment of cardiac function. Exam performed in department. Left Ventricle Normal LV size. The left ventricular ejection fraction is 60 %. No regional wall motion abnormalities noted. Right Ventricle Normal RV size. Normal systolic function. Atria The left atrium is mildly enlarged. Normal right atrium. Mitral Valve Bileaflet diffuse mitral valve thickening. Mild (1+) eccentric mitral valve insufficiency. Tricuspid Valve Normal tricuspid valve. Aortic Valve Trisinus/trileaflet aortic valve. Mild focal aortic valve thickening. Peak aortic valve gradient 36 mmHg. Mean aortic valve gradient 17 mmHg. Pulmonic Valve Normal pulmonic valve. Great Vessels Normal aortic root. The pulmonary artery is normal size. Inferior vena cava collapse with respiration. Pericardium/Pleural No pericardial effusion. MMode/2D Measurements & Calculations LVIDd: 5.2 cm IVSd: 1.3 cm LVOT diam: 2.1 cm LVIDs: 3.1 cm LVPWd: 1.0 cm LVOT area: 3.5 cm2 RVDd: 3.9 cm FS: 40.9 % Ao root diam: 3.3 cm LAV(MOD-bp): 81.3 ml LVAd ap4: 32.7 cm2 LAV(MOD-bp) Indexed: 37.0 ml/m2 LVLd ap4: 8.3 cm LAV(MOD-sp2): 83.4 ml EDV(MOD-sp4): 108.0 ml LAV(MOD-sp4): 79.0 ml EDV(sp4-el): 109.7 ml LVAs ap4: 19.9 cm2 LVLs ap4: 7.2 cm ESV(MOD-sp4): 47.0 ml ESV(sp4-el): 46.5 ml EF(MOD-sp4): 56.5 % EF(sp4-el): 57.6 % SV(MOD-sp4): 61.0 ml SV(sp4-el): 63.2 ml LA A4 area: 24.3 cm2 SI(MOD-sp4): 27.8 ml/m2 LA dimension(2D): 4.8 cm RA A4 area: 22.9 cm2 TAPSE: 1.2 cm Time Measurements MV dec time: 0.21 sec Doppler Measurements & Calculations MV E max de: 66.8 cm/sec Lat Peak E' De: 15.4 cm/sec Med Peak E' De: 6.2 cm/sec MV A max de: 62.4 cm/sec E/E' lat: 4.3 E/E' med: 10.7 MV E/A: 1.1 MV V2 max: 79.6 cm/sec MV P1/2t max de: 79.6 cm/sec Ao V2 max: 300.2 cm/sec MV max P.5 mmHg MV P1/2t: 79.9 msec Ao max P.2 mmHg MV V2 mean: 42.9 cm/sec Ao V2 mean: 192.1 cm/sec MV mean P.88 mmHg MV dec slope: 291.9 cm/sec2 Ao mean P.3 mmHg MV V2 VTI: 31.2 cm MVA(P1/2t): 2.8 cm2 Ao V2 VTI: 65.6 cm AV (velocity ratio): 0.44 MVA(VTI): 3.2 cm2 NICK(I,D): 1.5 cm2 NICK(V,D): 1.4 cm2 LV V1 max: 117.1 cm/sec MR max de: 528.4 cm/sec SV(LVOT): 99.9 ml LV V1 max P.5 mmHg MR max P.7 mmHg LV V1 mean P.4 mmHg LV V1 mean: 87.5 cm/sec LV V1 VTI: 28.6 cm PA V2 max: 124.5 cm/sec PA V2 mean: 83.1 cm/sec ECHO/Echo Complete Interpretation Summary The left ventricular ejection fraction is 60 %. Normal LV size. The left atrium is mildly enlarged. Mild (1+) eccentric mitral valve insufficiency. Mean aortic valve gradient 17 mmHg. Mild focal aortic valve thickening. The global longitudinal strain is moderately abnormal. Ordering Physician: Avelina Mckinnon Referring Physician: Avelina Mckinnon Performed By: Marquez Vigil RCS
== END | disposition home or self-care (01) ==
PROVIDERS: PCP Internal Medicine; Referring Provider Physician Assistant Medical; Visit Provider Physician Assistant Medical
DX: Z95.3 Presence of xenogenic heart valve (principal)
CPT/HCPCS: 93306

== ENCOUNTER → 2024-07-16 | Outpatient (CLI) | payer MEDICARE, OTHER, SELFPAY ==
--- NOTE | 2024-07-16 17:48 | STRESSREP_ITS ---
Stress Test Report Exercise myocardial perfusion stress test. 69-year-old man with a history of chest pain Stress protocol: Resting EKG demonstrates sinus bradycardia with a rate of 56 bpm resting blood pressure is 132/70 mmHg. The patient exercised according to the regular Russel protocol for a total duration of 8 minutes attaining a maximum heart rate of 129 bpm which was 85% of maximum predicted heart rate; the maximum workload was 10.1 metabolic equivalents. At rest there were no ST or T wave changes noted to suggest ischemia and at peak exercise horizontal ST changes of approximately 2 mm were noted in leads II, III and aVF and 1.6 mm in V6 suggesting ischemia. Moderate chest tightness was also noted as well as shortness of breath which improved with discontinuation of the test. The peak blood pressure was 160/72 mmHg. Rate-pressure product was 20,600. Myocardial perfusion protocol. 14.9 mCi of technetium 99m sestamibi was injected at rest. The patient exercised according to regular Russel protocol for total duration of 8-minute and at peak exercise 44.6 mCi of technetium 99m sestamibi was injected stress images were obtained stress and rest images were reconstructed in comparing the short axis vertical long and horizontal long axis. Gated images were also obtained. Perfusion SPECT analysis: Review of the stress images demonstrate normal uptake of tracer noted in all areas of the myocardium except for the anterior wall with reduced perfusion. The resting images similarly demonstrate normal uptake of tracer noted in all ar eas of the myocardium. The above is suggestive of a moderate amount of anterior ischemia. Gated SPECT analysis: The gated ejection fraction is 57%. Conclusion: Abnormal exercise myocardial perfusion stress test at a high workload with moderate anterior ischemia Preserved ejection fraction.
== END | disposition home or self-care (01) ==
LOC: CVS 06:11
PROVIDERS: PCP Internal Medicine; Referring Provider Physician Assistant Medical; Visit Provider Physician Assistant Medical
DX: Z95.1 Presence of aortocoronary bypass graft (principal); I25.10 Atherosclerotic heart disease of native coronary artery without angina pectoris; Z95.3 Presence of xenogenic heart valve; R07.9 Chest pain, unspecified
CPT/HCPCS: 78452; 93017; A9500

== ENCOUNTER 2024-08-06 09:00 | Day surgery (SDC) | payer MEDICARE, OTHER, SELFPAY ==
[2024-07-24 11:19] LABS: Absolute Lymphocyte Count 1.58 X10^3/uL (0.83-4.51); Absolute Neutrophil Count 4.2 X10^3/uL (2.0-7.7); Basophil# 0.05 X10^3/uL; Basophil% 0.7 % (0-1); Eosinophil# 0.21 X10^3/uL; Eosinophils% 3.1 % (0-5); Hematocrit 45.9 % (40-54); Hemoglobin 15.2 g/dL (13.0-16.5); Lymphocyte # 1.58 X10^3/ul (0.83-4.51); Lymphocyte % 23.1 % (19-41); Mean Corp Hgb Conc 33.1 g/dL (32-36); Mean Corpuscular Hgb 28.7 pg (27.0-32.0); Mean Corpuscular Volume 86.6 fL (80-94); Monocyte# 0.79 X10^3/uL; Monocyte% 11.5 % (0-10); NRBC Flagged by Analyzer 0 % (0-5); Neutrophil # 4.18 X10^3/uL (2.7-7.7); Platelet Count 226 K/mm3 (150-450); RBC Distribution Width CV 13.5 % (11.6-14.6); RBC Distribution Width SD 42.2 fl (35.1-43.9); White Blood Count 6.9 K/mm3 (4.4-11.0)
[2024-07-24 11:26] LABS: Partial Thromboplast Time 29.8 Seconds (24.1-36.2)
[2024-07-24 12:21] LABS: Anion Gap 13 (5-15); BUN 17 mg/dL (4-19); BUN/Creat Ratio 14.1 RATIO (10-20); Calcium,Total 9.5 mg/dL (7.6-11.0); Carbon Dioxide 24.1 mmol/L (21.0-32.0); Chloride 102 mmol/L (98-108); Creatinine, Serum 1.17 mg/dL (0.70-1.20); EST Glomerular Filtration Rate 67 (>60); Glucose 89 mg/dL (70-99); Potassium 4.7 mmol/L (3.3-5.1); Sodium Level 139 mmol/L (133-145)
--- NOTE | 2024-07-30 09:20 | HP.PCM_ITS ---
History and Physical Date of Admission: 08/04/24 Naun Herrera is a 69 year old gentleman that presented to [facility] on 06/19/2022 with chest discomfort that he described as pressure and burning. He states that it had been ongoing for approximately a week. Patient's high-sensitivity troponin was 6049. Patient underwent a diagnostic heart catheterization which demonstrated left main angiographically normal, LAD moderate disease noted in the LAD with qhuu-fu-jqvki collaterals, circumflex mild luminal irregularities, RCA has an abnormal takeoff and appears to have a high-grade stenosis in the vessel that is very tortuous with ljdy-dr-yecns collaterals. His aortic root was dilated. We did attempted to stent his distal RCA however they were unable to cross this it was felt that this lesion was likely chronically occluded. Medical management was recommended. Echocardiogram demonstrated an ejection fraction of 50%, left atrium mildly enlarged, mild concentric LVH, stage I diastolic dysfunction, severely dilated aortic root. With his severely dilated aortic root patient did undergo a CTA of the chest which demonstrated dilatation of the root of the a sending thoracic aorta with a transverse dimension of 54.8 mm. Patient was discharged home on metoprolol, aspirin, and atorvastatin. TERRIE inhibitor's were not started due to low blood pressure readings. Echocardiogram done in [facility] demonstrated an ejection fraction of 66%. Moderately severe aortic valve regurgitation. Moderate mitral valve regurgitation. Patient underwent CABG x 1 with an SVG to the RCA and status post bio [facility] in July 2022. Patient has not been seen in our office since his aortic aneurysm repair and bypass surgery. Pt feels that he is in a downward slope since his surgery. More so over the last 6 months. He gets CP after being on the treadmill. He notes that the CP will start when he is on the treadmill and will continue with the treadmill and will go away after a few minutes. He feels that his exercise tolerance has decreased. He does not have any worsening SOB with exertion. He does not have any orthopnea. He does not have any palpitations. He does not have any lightheadedness/dizziness. He does not have any swelling. He has not been to the dentist since he had his surgery. Because of his fatigue he did have a stress test done. This demonstrated moderate anterior ischemia at a high workload. He is scheduled to undergo a diagnostic heart catheterization. Medical History Atherosclerotic heart disease of [place] coronary artery without angina pectoris Dilated aortic root Non-STEMI (non-ST elevated myocardial infarction) HLD (hyperlipidemia) Back pain Surgical History History of aortic valve replacement with bioprosthetic valve (~08/07/22) History of coronary artery bypass surgery (~08/07/22) History of percutaneous left heart catheterization (06/19/22) History of hernia repair Family History Grandfather Myocardial infarction Social History Smoking Status: Never smoker ROS Const Const: Positive for headache(s) Eyes Eyes: Negative for loss of peripheral vision or transient loss of vision ENT ENT: Positive for headache(s) and dizziness; Negative for balance problems Cardio Chest Pain: Yes Palpitations: No Edema: None Muscle aches with walking: None Resp Respiratory: Negative for SOB with activity, SOB at rest or SOB orthopnea\SOB lying down GI GI: Positive for heartburn; Negative nausea or vomiting Musc Musc: Negative for muscle aches/ myalgia, muscle weakness, joint pain or balance problems Neuro Neuro: Positive for dizziness and headache(s) Cardiology Exam Const Appearance: cooperative, no acute distress and well developed Orientation: alert, awake and oriented x3 Head Head: normal to inspection Ears: hearing grossly normal bilaterally Nose: external nose normal Face and Sinus: face symmetric Mouth: oral mucosae normal, lip normal and moist mucous membranes Eyes General: appearance normal, both eyes and all related structures Eyelids: eyelids normal Conjunctivae: conjunctivae normal Pupils: PERRL EOM: EOM intact bilaterally Neck Neck: normal visual inspection and trachea midline; Negative no JVD Carotids: Negative bruit Chest Chest inspection: normal inspection of the chest Auscultation: Bilateral: Clear to Auscultation Cardio Palpation: normal PMI Rate: regular rate Rhythm: regular rhythm Heart sounds: S1 normal and S2 normal; Negative rub, gallop or murmur Murmur: Grade 2/6, loud and holosystolic GI GI: soft, no hepatosplenomegaly and bowel sounds present Neuro General: patient alert, patient awake, patient oriented x3 and CN's II-XI intact bilaterally Extremities Pulses: Normal: Right Posterior Tibial Pulse, Left Posterior Tibial Pulse, Right Radial Pulse and Left Radial Pulse Lower Extremity Edema: None: Bilateral Psych Psychological: normal affect Assessment & Plan Assessment/Plan (1) History of percutaneous left heart catheterization: (2) History of coronary artery bypass surgery: (3) History of aortic valve replacement with bioprosthetic valve: (4) Chest pain: (5) Abnormal stress test: PLAN: Plan Patient is scheduled to undergo a diagnostic heart catheterization. Follow-up will be based upon findings.
[2024-08-01 08:18] VITALS: BMI 34.2
--- NOTE | 2024-08-04 09:30 | RAD_ITS ---
PROCEDURE: CHEST PA AND LATERAL 08/04/2024 REASON FOR EXAM: CP TECHNIQUE: Frontal and lateral views of the chest. COMPARISON: None available FINDINGS: The lungs appear clear. Pulmonary vascularity appears within limits. No pleural effusion. Status post median sternotomy and aortic valve replacement. The cardiac and mediastinal contours appear within limits. The visualized osseous structures appear within limits. RAD/Chest PA and Lateral IMPRESSION: No evidence of acute disease. Status post median sternotomy and aortic valve replacement. Reading Location: [id number]
--- NOTE | 2024-08-06 13:17 | CL.D_ITS ---
Patient Name: CARINA GARDUNO Study Date: 08/06/2024 Performing: Jose Justice MD Ht: 69 inches 175.26 cm : 1955 Wt: 231 lbs 104.78 kg Age: 69 Gender: male BSA: 2.2 PROCEDURE(S) PERFORMED DC04-([id number])LHC/COR/CABG CLINICAL PROFILE AND INDICATIONS Indications: Suspected CAD Heart Failure: None Stress/Imaging Date: 07/06/24Stress Test with SPECT MPI: Positive Low Risk CAD Presentations: Stable angina. CONCLUSIONS Chronically occluded right coronary artery with rtob-cy-ndarx collaterals and patent ectatic LAD and circumflex artery with slow flow noted. RECOMMENDATIONS Medical therapy. DESCRIPTION OF PROCEDURE The patient arrived to the procedure lab. The risks and benefits of the procedure as well as a full description of our services here and current unavailability of surgical backup were fully explained to the patient and/or their significant other prior to the catheterization. The Timeout was completed, verifying the correct patient and procedure. The patient's procedural site was prepped and draped in the usual fashion. Local anesthetic was given subcutaneously to left radial region with Lidocaine 2%. Using a modified Seldinger technique, arterial access was obtained via the left radial artery, a 6Fr sheath was inserted. Left Coronary Artery selective angiography was performed in multiple views using a 5 Fr. JL4 catheter. Ascending (root) aorta selective angiography was then performed in single view. Ascending (root) aorta selective angiography was then performed in single view.The arterial sheath was pulled and a TR Band was applied for hemostasis w/ 10ml air CORONARY ANGIOGRAPHY DOMINANCE: Right Dominant LEFT HEART ASSESSMENT Left Ventricular Ejection Fraction: by Echo 55 % Normal Left Ventricular systolic function Dilated ascending aorta and innominate and brachiocephalic branches. LEFT MAIN: Angiographically normal LEFT ANTERIOR DESCENDING ARTERY: Large vessel with slow flow noted towards the apex. 3 diagonal branches with no significant stenosis present. CIRCUMFLEX ARTERY: Nondominant but large size vessel also ectatic and also noted with slow flow. Meca-uy-gfjkh collaterals seen filling the right coronary system. RIGHT CORONARY ARTERY: PROX RCA: is occluded COLLATERAL FLOW: Collateral flow from Left to Right AORTIC ROOT: The composite graft is noted to be intact and the bioprosthetic aortic valve is intact and stable with no leak. COMPLICATIONS No Complications PROCEDURE MEDICATIONS Versed 1 mg IV Fentanyl 50 mcg IV Versed 1 mg IV Oxygen: 2 L/min via nasal cannula Heparin given IA 08/06/2024 12:05:07 Verapamil 2.5mg, Ntg 100mcgs, 3000 units of Heparin given IA 08/06/2024 12:05:07 SUMMARY OF HEMODYNAMIC DATA Time AIR REST ECG 10:41:37 AO 104/74 (88) SA 12:11:21 AO 93/60 (76) 12:16:57 Signed By Jose Justice MD On 08/06/2024 13:16:49 Jose Justice MD
== END 2024-08-06 14:10 | disposition home or self-care (01) ==
PROVIDERS: Physician Assistant Medical; PCP Internal Medicine; Referring Provider Internal Medicine Cardiovascular Disease; Visit Provider Internal Medicine Cardiovascular Disease
DX: I25.118 Atherosclerotic heart disease of native coronary artery with other forms of angina pectoris (principal); I25.2 Old myocardial infarction; Z95.2 Presence of prosthetic heart valve; Z79.82 Long term (current) use of aspirin; Z79.899 Other long term (current) drug therapy
CPT/HCPCS: 36415; 71046; 80048; 85025; 85610; 85730; 93455; 99152; 99153; C1894; Q9967; C1769

== ENCOUNTER → 2024-09-26 | Outpatient (CLI) | payer MEDICARE, OTHER, SELFPAY ==
--- NOTE | 2024-09-26 14:55 | CDU_ITS ---
Reason For Study Reason For Study: Dizziness Rt. Velocities/BP Lt. Velocities/BP Prox CCA 93.7/21.2 cm/sec. Prox CCA 70.2/14.5 cm/sec. Mid CCA 103.5/21.2 cm/sec. Mid CCA 95.7/19.2 cm/sec. Dist CCA 74/18.8 cm/sec. Dist CCA 74/19.2 cm/sec. Prox ICA 58.1/20 cm/sec. Prox ICA 67.4/26.7 cm/sec. Mid ICA 64.2/24.9 cm/sec. Mid ICA 65.5/24.8 cm/sec. Dist ICA 64.5/18.5 cm/sec. Dist ICA 57.9/22 cm/sec. Rt. ICA/CCA = 0.62. Lt. ICA/CCA = 0.70. Prox ECA 75.6/12.6 cm/sec. Prox ECA 85.3/12.6 cm/sec. Rt. Vert. 34.4/11.6 cm/sec. Lt. Vert. 35.1/13.7 cm/sec. Right Extracranial There is intimal thickening but no significant atherosclerotic plaque noted in the right common carotid artery. There is intimal thickening but no significant atherosclerotic plaque noted in the right internal carotid artery. There is intimal thickening but no significant atherosclerotic plaque noted in the right external carotid artery. Antegrade flow is noted in the right vertebral artery. Left Extracranial There is intimal thickening but no significant atherosclerotic plaque noted in the left common carotid artery. There is intimal thickening but no significant atherosclerotic plaque noted in the left internal carotid artery. There is intimal thickening but no significant atherosclerotic plaque noted in the left external carotid artery. Antegrade flow is noted in the left vertebral artery. Procedure This is a Carotid Duplex examination using B-mode, color flow and specral Doppler. Carotid Duplex [id number]. Exam performed in department. VL/Carotid Duplex Ultrasound Interpretation Summary Normal right extracranial internal carotid. Normal left extracranial internal carotid. Patent and antegrade vertebrals bilaterally. Ordering Physician: Avelina Mckinnon Referring Physician: Todd Rivas M.D. Performed By: Sarah Franco RVT
== END | disposition home or self-care (01) ==
LOC: CVS 14:53
PROVIDERS: PCP Internal Medicine; Referring Provider Physician Assistant Medical; Visit Provider Physician Assistant Medical
DX: R42 Dizziness and giddiness (principal)
CPT/HCPCS: 93880